=== PATIENT | female | born 2000 | race Caucasian/White ===

== ENCOUNTER 2021-03-16 08:08 | Emergency (ER) | payer OTHER, SELFPAY ==
[2021-03-16 08:18] VITALS: BP 126/89; PULSE 104; RESP 20; TEMP 36.5; O2SAT 100
--- NOTE | 2021-03-16 08:19 | ED.ANXIETY ---
HPI - Anxiety General Chief Complaint: Anxiety Stated Complaint: anxiety Time Seen by Provider: 03/16/21 08:19 Source: patient Mode of arrival: ambulatory Limitations: no limitations History of Present Illness HPI narrative: Kari Simons is a 20 yo female with a PMH of anxiety who comes to express care with c/o anxiety -tried using marijuana to calm the anxiety, without complete success. 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 EYES: Denies visual changes, redness, discharge. ENT: Denies rhinorrhea, congestion, sore throat, otalgia. CARDIOVASCULAR: Denies chest pain, palpitations, edema. RESPIRATORY: Denies dyspnea, wheezing, cough GASTROINTESTINAL: Denies abdominal pain, nausea, vomiting, diarrhea. GENITOURINARY: Denies dysuria, hematuria, abnormal discharge SKIN: Denies rash or itching. NEUROLOGIC: Denies numbness, or focal weakness. PSYCHIATRIC: Complaining of anxiety, no depression. PMFSH Past Medical History Medical History Anxiety Bipolar disorder Family History Family History Grandparent Diabetes mellitus Social History Social History (Updated 03/16/21 @ 08:33 by Ewa Woodson CNP) Smoking status: Current every day smoker Tobacco type: e-cigarettes/vaping Alcohol intake: never Alcohol use details: Does not like the way alcohol makes her feel Substance use: current Substance use type: marijuana Comments At time of signature, I agree with nursing past medical, surgical, social and family history. There is no relevant family history pertinent to the presenting complaint. Exam Narrative: Exam Narrative: GENERAL: This is a well-nourished, well-developed patient, in moderate distress. HEAD: normocephalic, atraumatic. EYES: Sclera clear/white. Vision is grossly intact. EARS: External ears normal, . Hearing grossly intact. NOSE: External nose normal without nasal discharge, nares without redness, no rhinorrhea. THROAT: Mucous membranes moist, NECK: Neck supple, CARDIOVASCULAR: Regular rate and rhythm without murmurs, gallops, or rubs. RESPIRATORY: Clear to auscultation. Breath sounds equal bilaterally. No wheezes, rales, or rhonchi. GASTROINTESTINAL: Abdomen soft, SKIN: warm, intact with no suspicious lesions or rash, good texture and turgor. NEURO: awake, alert, and oriented to person, place and time. There were no obvious focal neurologic abnormalities. Steady gait EXTREMITIES: Normal range of motion. BACK: Nontender without deformity Psych: anxious, moving around, hx bipolar, denies suicial ideation Course Course Emergency Course: Patient comes to [facility] with complaints of anxiety that started yesterday try to deal with with marijuana and has not improved; patient has a history of bipolar disorder and been off mood stabilizers Blood sugar checked and was 91 Started on Atarax 25 mg every 4-6 hours as needed Vital Signs Vital signs: Vital Signs Temperature 97.7 F 03/16/21 08:18 Pulse Rate 104 H 03/16/21 08:18 Respiratory Rate 20 03/16/21 08:18 Blood Pressure 126/89 03/16/21 08:18 Pulse Oximetry 100 03/16/21 08:18 Temperature 97.7 F 03/16/21 08:18 Pulse Rate 104 H 03/16/21 08:18 Respiratory Rate 20 03/16/21 08:18 Blood Pressure 126/89 03/16/21 08:18 Pulse Oximetry 100 03/16/21 08:18 MDM - Anxiety Differential Diagnosis Differential diagnosis: Likely hyperventilation, panic disorder, acute anxiety and other (Recurrent bipolar disorder versus hypomania) Lab Data Labs: Lab Results 03/16/21 Range/Units 08:26 POC [place]
[2021-03-16 08:29] LABS: Glucose Point of Care 91 (65-105)
== END 2021-03-16 08:46 | disposition home or self-care (01) ==
PROVIDERS: Emergency Provider Nurse Practitioner; PCP Family Medicine
DX: F41.9 Anxiety disorder, unspecified (principal); F17.210 Nicotine dependence, cigarettes, uncomplicated
CPT/HCPCS: 82948; 99213; G0463

== ENCOUNTER 2021-04-23 13:36 | Emergency (ER) | payer OTHER, SELFPAY ==
[2021-04-23 13:41] VITALS: BP 127/83; PULSE 94; RESP 16; TEMP 36.6; O2SAT 100
[2021-04-23 13:44] VITALS: BP 127/83; PULSE 94; RESP 16; TEMP 36.6; O2SAT 100
--- NOTE | 2021-04-23 13:45 | ED.NAVMDI ---
HPI - Nausea/Vomiting/Diarrhea General Chief complaint: Nausea/Vomiting/Diarrhea Stated complaint: VOMITING/DIARRHEA Time Seen by Provider: 04/23/21 13:44 Source: patient and RN notes reviewed Mode of arrival: ambulatory Limitations: no limitations History of Present Illness HPI Narrative: 20-year-old female presents with concern for nausea, vomiting, diarrhea. She reports she had multiple episodes of vomiting and diarrhea yesterday. She reports she has not vomited since last night and has been keeping fluids down. She reports she has had 2 episodes of diarrhea today, however called off work. She denies abdominal pain, fever, body aches, chills, sweats, rhinorrhea, nasal congestion, sore throat. Reports headache. She denies bloody diarrhea, hematuria, flank pain, dysuria. Reports taking Imodium this morning MD elicited complaint: diarrhea Related Data Home Medications Medication Instructions Recorded Confirmed bupropion HCl mg PO 04/23/21 propranolol 04/23/21 tramadol mg 04/23/21 Allergies Allergy/AdvReac Type Severity Reaction Status Date / Time raspberry Allergy Unknown Hives / Verified 06/27/18 01:12 Red Face Review of Systems Review of Systems: Narrative: CONSTITUTIONAL: Denies malaise, chills, sweats, or fever. EYES: Denies visual changes, redness, or discharge. ENT: Denies rhinorrhea, congestion, sinus pain, otalgia or sore throat. CARDIOVASCULAR: Denies chest pain, palpitations, or edema. RESPIRATORY: Denies cough or dyspnea. GASTROINTESTINAL: Denies abdominal pain, bloody, or mucous stools. Reports 2 episodes of diarrhea today, reports vomiting yesterday. GENITOURINARY: Denies dysuria or hematuria. MUSCULOSKELETAL: Denies flank pain, myalgia. NEUROLOGIC: Reports headache. All systems reviewed & are unremarkable except as noted in HPI and below PMFSH Past Medical History Medical History Anxiety Bipolar disorder Family History Family History Grandparent Diabetes mellitus Social History Social History (Updated 03/16/21 @ 08:33 by Ewa Woodson CNP) Smoking status: Current every day smoker Tobacco type: e-cigarettes/vaping Alcohol intake: never Substance use: current Substance use type: marijuana Comments At time of signature, agree with nursing past medical, surgical, social and family history. There is no relevant family history pertinent to the presenting complaint Exam Narrative: Exam Narrative: GENERAL: Well-appearing, well-nourished, and in no acute distress. HEAD: Normocephalic. EYES: PERRLA, conjunctivae clear. NECK: Supple. No lymphadenopathy CHEST: Clear to auscultation. No respiratory distress. HEART: Regular rate and rhythm. ABDOMEN: Soft, nontender upon palpation, nondistended, normal active bowel sounds, no palpable or pulsatile masses, no guarding. No CVA tenderness SKIN: Warm, dry, no rash. NEURO: Alert and oriented x3. PSYCH: Normal mood and affect Course Course Emergency Course: Patient is aware of diagnosis, understands and agrees to treatment plan. Anticipatory guidance given. Patient agrees to follow-up as directed and is aware of reasons to seek care at the emergency department. Portions of this record may have been created with voice recognition software Vital Signs Vital signs: Vital Signs Temperature 97.9 F 04/23/21 13:41 Pulse Rate 94 04/23/21 13:41 Respiratory Rate 16 04/23/21 13:41 Blood Pressure 127/83 04/23/21 13:41 Pulse Oximetry 100 04/23/21 13:41 Temperature 97.9 F 04/23/21 13:44 Pulse Rate 94 04/23/21 13:44 Respiratory Rate 16 04/23/21 13:44 Blood Pressure 127/83 04/23/21 13:44 Pulse Oximetry 100 04/23/21 13:44 Reviewed. MDM - Nausea/Vomiting/Diarrhea MDM Narrative Medical decision making narrative: No evidence of pancreatitis, AAA, cholecystitis, choledocholithiasis, cholangi
== END 2021-04-23 14:00 | disposition home or self-care (01) ==
PROVIDERS: Emergency Provider Nurse Practitioner; PCP Family Medicine
DX: R19.7 Diarrhea, unspecified (principal); F41.9 Anxiety disorder, unspecified; F31.9 Bipolar disorder, unspecified; F17.290 Nicotine dependence, other tobacco product, uncomplicated
CPT/HCPCS: 99211; G0463

== ENCOUNTER 2021-05-28 12:07 | Emergency (ER) | payer OTHER, SELFPAY ==
--- NOTE | ~2021-05-28 | XR_ITS ---
XR chest 2V DATE: 05/28/2021 12:47 INDICATION: Cough TECHNIQUE: PA and lateral views COMPARISON: 07/07/2018 PA and lateral chest FINDINGS: Normal heart size. No hilar or mediastinal enlargement. No pulmonary infiltrate or consolid ation, pleural effusion or pulmonary vascular congestion or pneumothorax. IMPRESSION: No active cardiopulmonary disease Reviewed, dictated and finalized at location A.
[2021-05-28 12:28] VITALS: BP 126/81; PULSE 85; RESP 18; TEMP 36.3; O2SAT 99
--- NOTE | 2021-05-28 13:35 | PC.NURSE ---
1334 pt at intake desk stating she is feeling better and she is just going to leave. Pt ambulated out of Ed to meet mother with no distress noted.
== END 2021-05-28 13:34 | disposition left against medical advice (07) ==
LOC: ANHED 13:49
PROVIDERS: Emergency Provider Emergency Medicine
DX: R05 Cough (principal)
CPT/HCPCS: 71046; 99199

== ENCOUNTER 2021-08-30 14:38 | Emergency (ER) | payer OTHER, SELFPAY ==
--- NOTE | ~2021-08-30 | XR_ITS ---
XR chest 2V DATE: 08/30/2021 14:56 INDICATION: Shortness of breath, inspiratory wheezes. Covid infection. TECHNIQUE: 2 views COMPARISON: 2 view chest FINDINGS: Normal heart size. No hilar or mediastinal enlargement. No pulmonary infiltrate or consolid ation, pleural effusion or pulmonary vascular congestion or pneumothorax. Included skeletal structure s are unremarkable. IMPRESSION: No active cardiopulmonary disease Reviewed, dictated and finalized at location A.
--- NOTE | 2021-08-30 14:41 | ED.URI ---
HPI - URI/Sore Throat General Chief Complaint: Shortness of Breath/Dyspnea Stated Complaint: Shortness of Breath Time Seen by Provider: 08/30/21 14:41 Source: patient and RN notes reviewed History of Present Illness HPI Narrative: Patient is a 20-year-old female who presents the urgent care with complaints of wheezing, chest heaviness/tightness, and shortness of breath. Patient has not taken anything [id number] for her symptoms. Patient has not had a fever for the last week or so and was taking Tylenol. No other acute complaints. No acute distress noted. Patient aware of the plan of care. Some parts of this dictation were generated by voice recognition software and may contain typographical and/or grammatical inaccuracies. Related Data Home Medications Medication Instructions Recorded Confirmed bupropion HCl 150 mg PO DAILY 08/30/21 08/30/21 hydroxyzine pamoate 25 mg PO Q12-24H PRN 08/30/21 08/30/21 lamotrigine 100 mg PO DAILY 08/30/21 08/30/21 Allergies Allergy/AdvReac Type Severity Reaction Status Date / Time raspberry Allergy Unknown Hives / Verified 08/30/21 14:53 Red Face chicken pox vaccine Allergy Unknown Uncoded 08/30/21 15:03 Review of Systems Review of Systems: CONSTITUTIONAL: Denies fever, chills, or sweats. EYES: Denies visual changes, redness, or discharge. ENT: Denies rhinorrhea, congestion, sore throat, or otalgia. CARDIOVASCULAR: Denies chest pain, palpitations, or edema. RESPIRATORY: Reports of difficulty with deep breathing, wheezing and dyspnea GASTROINTESTINAL: Denies abdominal pain, nausea, vomiting, or diarrhea. GENITOURINARY: Denies dysuria or hematuria. SKIN: Denies rash or itching. MUSCULOSKELETAL: Denies back pain, joint pain, or myalgia. NEUROLOGIC: Denies headache, numbness, or weakness. All other systems reviewed are negative, except as documented in HPI. [facility] Past Medical History Medical History Anxiety Bipolar disorder Family History Family History Grandparent Diabetes mellitus Social History Social History (Updated 03/16/21 @ 08:33 by Ewa Woodson CNP) Smoking status: Current every day smoker Tobacco type: e-cigarettes/vaping Alcohol intake: never Alcohol use details: Does not like the way alcohol makes her feel Substance use: current Substance use type: marijuana Comments At the time of my signature, I reviewed and agree with the nursing past medical, surgical, social, and family history. There is no relevant family history pertinent to the patient complaint. Exam Narrative: GENERAL: This is a well-nourished, well-developed patient, in no apparent distress. HEAD: normocephalic, atraumatic. EYES: PERRL. Sclera clear/white. Vision is grossly intact. EARS: External ears normal, auditory canals clear and without drainage, TMs normal without perforation. Hearing grossly intact. NOSE: External nose normal with no obvious nasal discharge, nares without redness, no rhinorrhea. THROAT: Mucous membranes moist, posterior pharynx clear. NECK: Neck supple CARDIOVASCULAR: Regular rate and rhythm without murmurs, gallops, or rubs. RESPIRATORY: Inspiratory wheezes throughout, slightly diminished SKIN: warm, intact with no suspicious lesions or rash, good texture and turgor. NEURO: awake, alert, and oriented to person, place and time. There were no obvious focal neurologic abnormalities. EXTREMITIES: No clubbing, cyanosis, or edema. Course Vital Signs Vital signs: Vital Signs Temperature 98.6 F 08/30/21 14:46 Pulse Rate 106 H 08/30/21 14:46 Respiratory Rate 16 08/30/21 14:46 Blood Pressure 139/71 08/30/21 14:46 Pulse Oximetry 99 08/30/21 14:46 Temperature 98.6 F 08/30/21 14:46 Pulse Rate 106 H 08/30/21 14:46 Respiratory Rate 16 08/30/21 14:46 Blood Pressure 139/71 08/30/21 14:46 Pulse Oximetry 99 08/30/21 1
[2021-08-30 14:46] VITALS: BP 139/71; PULSE 106; RESP 16; TEMP 37; O2SAT 99
== END 2021-08-30 15:05 | disposition home or self-care (01) ==
PROVIDERS: Emergency Provider Nurse Practitioner Family; PCP Family Medicine
DX: J98.8 Other specified respiratory disorders (principal); U09.9 Post COVID-19 condition, unspecified; F17.200 Nicotine dependence, unspecified, uncomplicated; F31.9 Bipolar disorder, unspecified; F41.9 Anxiety disorder, unspecified
CPT/HCPCS: 71046; 99213; G0463

== ENCOUNTER 2021-10-18 10:32 | Emergency (ER) | payer OTHER, SELFPAY ==
[2021-10-18 10:40] VITALS: BP 135/73; PULSE 100; RESP 16; TEMP 36.6; O2SAT 99
[2021-10-18 10:50] VITALS: BP 135/73; PULSE 100; RESP 16; TEMP 36.6; O2SAT 99
--- NOTE | 2021-10-18 11:04 | ED.URI ---
HPI - URI/Sore Throat General Chief Complaint: Upper Respiratory Infection Stated Complaint: Cough/Headache Time Seen by Provider: 10/18/21 11:04 Source: patient and RN notes reviewed Mode of arrival: ambulatory Limitations: no limitations History of Present Illness HPI Narrative: 21-year-old female presents with concern for 2-day history of nasal congestion, rhinorrhea, cough. Reports throat burning with cough. Reports she ended quarantine for Covid on September 01. Reports she is concerned about going to work. Food. She denies body aches, fever, chills, shortness of breath, reports sweats. MD elicited complaint: cough Related Data Home Medications Medication Instructions Recorded Confirmed bupropion HCl 150 mg PO DAILY 08/30/21 10/18/21 lamotrigine 100 mg PO DAILY 08/30/21 10/18/21 propranolol 10 mg PO TID 10/18/21 10/18/21 Allergies Allergy/AdvReac Type Severity Reaction Status Date / Time raspberry Allergy Unknown Hives / Verified 08/30/21 14:53 Red Face chicken pox vaccine Allergy Unknown Uncoded 08/30/21 15:03 Review of Systems Review of Systems: CONSTITUTIONAL: Denies malaise, chills, or fever. Reports sweats EYES: Denies visual changes, redness, or discharge. ENT: Reports rhinorrhea, congestion. Denies sinus pain, otalgia. Reports scratchy sore throat. CARDIOVASCULAR: Denies chest pain, palpitations, or edema. RESPIRATORY: Reports cough. Denies dyspnea. GASTROINTESTINAL: Denies abdominal pain, nausea, vomiting, diarrhea SKIN: Denies rash or itching. MUSCULOSKELETAL: Denies myalgia. NEUROLOGIC: Denies headache. All systems reviewed & are unremarkable except as noted in HPI and below PMFSH Past Medical History Medical History Anxiety Bipolar disorder Family History Family History Grandparent Diabetes mellitus Social History Social History (Updated 03/16/21 @ 08:33 by Ewa Woodson CNP) Smoking status: Current every day smoker Tobacco type: e-cigarettes/vaping Alcohol intake: never Alcohol use details: Does not like the way alcohol makes her feel Substance use: current Substance use type: marijuana Comments At time of signature, agree with nursing past medical, surgical, social and family history. There is no relevant family history pertinent to the presenting complaint Exam Narrative: GENERAL: Well-appearing, well-nourished, and in no acute distress. HEAD: Normocephalic EYES: PERRLA, conjunctivae clear ENT: Nares clear, clear discharge. Mucous membranes moist. TM pearly red with dull light reflex bilaterally; no tragal tenderness. Oropharynx not erythematous without lesions. Tonsils not enlarged and without exudate, no drooling, no hoarseness, no trismus, uvula midline. NECK: Supple. No lymphadenopathy CHEST: Clear to auscultation, breath sounds equal. No wheezing, rhonchi, rales, or stridor. No respiratory distress, speaks in full sentences. HEART: Regular rate and rhythm. No murmur heard. SKIN: Warm, dry, no rash. NEURO: Alert and oriented x3. PSYCH: Normal mood and affect Course Course Emergency Course: Patient is aware of diagnosis, understands and agrees to treatment plan. Anticipatory guidance given. Patient agrees to follow-up as directed and is aware of reasons to seek care at the emergency department. Portions of this record may have been created with voice recognition software Vital Signs Vital signs: Vital Signs Temperature 98 F 10/18/21 10:40 Pulse Rate 100 10/18/21 10:40 Respiratory Rate 16 10/18/21 10:40 Blood Pressure 135/73 10/18/21 10:40 Pulse Oximetry 99 10/18/21 10:40 Temperature 98 F 10/18/21 10:50 Pulse Rate 100 10/18/21 10:50 Respiratory Rate 16 10/18/21 10:50 Blood Pressure 135/73 10/18/21 10:50 Pulse Oximetry 99 10/18/21 10:50 Reviewed. MDM - URI/Sore Throat MDM Narrative Medical deci
== END 2021-10-18 11:18 | disposition home or self-care (01) ==
PROVIDERS: Emergency Provider Nurse Practitioner; PCP Family Medicine
DX: J06.9 Acute upper respiratory infection, unspecified (principal); F17.290 Nicotine dependence, other tobacco product, uncomplicated; F31.9 Bipolar disorder, unspecified; F41.9 Anxiety disorder, unspecified
CPT/HCPCS: 99213; G0463

== ENCOUNTER 2022-09-20 11:49 | Emergency (ER) | payer OTHER, SELFPAY ==
[2022-09-20 12:03] VITALS: BP 108/77; PULSE 73; RESP 16; TEMP 36.6; O2SAT 100
--- NOTE | 2022-09-20 14:32 | ED.NAVMDI ---
HPI - Nausea/Vomiting/Diarrhea General Chief complaint: Nausea/Vomiting/Diarrhea Stated complaint: Vomiting/Diarrhea Time Seen by Provider: 09/20/22 14:33 Source: patient, RN notes reviewed and old records reviewed Mode of arrival: ambulatory Limitations: no limitations History of Present Illness HPI Narrative: 21-year-old female who presents to [facility] with 2-3 days duration of nausea vomiting diarrhea. Patient states she has had no fever but did have to call off work for 2 days. Patient denies any acute abdominal pain does voice some cramping but is unsure if it is related to the diarrhea or female issues.Reports she did have diarrhea stool this morning, denies any noted blood in stool. MD elicited complaint: nausea, vomiting and diarrhea Pertinent past history: other (IBS) Onset (ago): day(s) (3) Pain scale (0-10): 2 Quality: cramping Treatment prior to arrival: none Related Data Home Medications Medication Instructions Recorded Confirmed bupropion HCl (smoking deter) 150 150 mg PO DAILY 09/20/22 09/20/22 mg tablet,12 hr sustained-release(smoking deterrent) lamotrigine 100 mg tablet 150 mg PO DAILY 09/20/22 09/20/22 norethindrone 1 mg-ethinyl 1 tablet PO DAILY 09/20/22 09/20/22 estradiol 20 mcg (24)-iron 75 mg (4) tablet () Allergies Allergy/AdvReac Type Severity Reaction Status Date / Time raspberry Allergy Unknown Hives / Verified 09/20/22 12:34 Red Face chicken pox vaccine Allergy Unknown Uncoded 09/20/22 12:34 Review of Systems Review of Systems: CONSTITUTIONAL: Denies fever, chills, or sweats. ENT: Denies rhinorrhea, congestion, sore throat, or otalgia. CARDIOVASCULAR: Denies chest pain, palpitations, or edema. RESPIRATORY: Denies cough or dyspnea. GASTROINTESTINAL: Reports abdominal cramps, nausea, vomiting, diarrhea. GENITOURINARY: Denies dysuria or hematuria. SKIN: Denies rash or itching. MUSCULOSKELETAL: Denies back pain, joint pain, or myalgia. NEUROLOGIC: Denies headache, numbness, or weakness. All systems reviewed & are unremarkable except as noted in HPI and below PMFSH Past Medical History Medical History (Updated 09/26/22 @ 14:20 by Janey Almanza NP) Anxiety Bipolar disorder COVID-19 08/2021 Exercise-induced asthma IBS (irritable bowel syndrome) Family History Family History Grandparent Diabetes mellitus Social History Social History (Updated 09/26/22 @ 14:17 by Janey Almanza NP) Smoking status: Current every day smoker Tobacco type: e-cigarettes/vaping Alcohol intake: never Alcohol use details: Does not like the way alcohol makes her feel Substance use: current Substance use type: marijuana Gender identity (if verbalized by the patient): Female Comments At time of signature, agree with nursing past medical, surgical, social and family history. There is no relevant family history pertinent to the presenting complaint Exam Narrative: GENERAL: Well-appearing, well-nourished, and in no acute distress. HEAD: Normocephalic, atraumatic. EYES: PERRLA, conjunctivae clear, and EOMI. ENT: Nares clear. Mucous membranes moist. Oropharynx without edema, erythema, or lesions. Tonsils not enlarged and without exudate. NECK: Supple. No lymphadenopathy CHEST: Speaks in full sentences. No respiratory distress.SAO2 100% on room air HEART: Regular rate and rhythm. ABDOMEN: Soft, flat, nondistended. No guarding, rebound tenderness, or rigid. No pulsatilla masses. Bowel sounds present in all four quadrants. No organomegaly. Negative Stewart?s sign. No periumbilical tenderness.No McBurney point tenderness, No Supra public tenderness or distension. Good femoral pulses bilaterally. No hernia noted. No scars or surface trauma. SKIN: Warm, dry, no rash. NEURO:? Alert and oriented x3. PSYCH: Normal mood and affect Course Course Emergency Course: Patient is aware of
== END 2022-09-20 15:05 | disposition home or self-care (01) ==
PROVIDERS: Emergency Provider Registered Nurse; PCP Family Medicine
DX: K52.9 Noninfective gastroenteritis and colitis, unspecified (principal); F17.290 Nicotine dependence, other tobacco product, uncomplicated; F41.9 Anxiety disorder, unspecified; F31.9 Bipolar disorder, unspecified
CPT/HCPCS: 87804; 99213; G0463

== ENCOUNTER 2022-10-17 15:51 | Emergency (ER) | payer OTHER, SELFPAY ==
--- NOTE | ~2022-10-17 | XR_ITS ---
EXAMINATION: XR chest 2V DATE: 10/17/2022 16:10 INDICATION: Shortness of breath and cough TECHNIQUE: PA and lateral views of the chest were obtained. COMPARISON: Chest radiograph dated 08/30/2021 FINDINGS: No focal airspace opacities, pulmonary edema, pleural effusion or pneumothorax. Skinfold projects jose ng the lateral left midlung zone. The cardiomediastinal silhouette is normal. Mild to moderate thorac ic spondylosis with chronic minimal anterior wedging of a. Midthoracic vertebral bodies. IMPRESSION: 1. No acute cardiopulmonary disease. Reviewed, dictated and finalized at location A. RAN APPEALS REVIEWER
[2022-10-17 15:56] VITALS: BP 116/69; PULSE 112; RESP 14; TEMP 36.8; O2SAT 100
--- NOTE | 2022-10-17 16:25 | ED.URI ---
HPI - URI/Sore Throat General Chief Complaint: Upper Respiratory Infection Stated Complaint: Cough/Shortness of Breath Time Seen by Provider: 10/17/22 16:10 Source: patient Mode of arrival: ambulatory Limitations: no limitations History of Present Illness HPI Narrative: Ms. Simons is a 22-year-old female patient presenting to clinic today with complaints of cough and shortness of breath x4 days. She denies any fever or chills. Does have a history of anxiety. States that she has tried her mother's nebulizer at home and that has improved her symptoms 1 time. MD elicited complaint: sore throat and nasal congestion Related Data Home Medications Medication Instructions Recorded Confirmed aripiprazole 5 mg tablet 5 mg PO DAILY 10/17/22 10/17/22 bupropion HCl 150 mg 24 hr tablet, 150 mg PO DAILY 10/17/22 10/17/22 extended release lamotrigine 100 mg tablet 150 mg PO DAILY 10/17/22 10/17/22 Allergies Allergy/AdvReac Type Severity Reaction Status Date / Time raspberry Allergy Unknown Hives / Verified 10/17/22 16:49 Red Face chicken pox vaccine Allergy Unknown Uncoded 10/17/22 16:49 Review of Systems Review of Systems: Pertinent positives per HPI. Patient denies any fever, chills, rash, headache, visual changes, dizziness, chest pain, palpitations, nausea, vomiting, diarrhea, constipation, abdominal pain, or any urinary issues. [facility] Past Medical History Medical History Anxiety Bipolar disorder COVID-19 08/2021 Exercise-induced asthma IBS (irritable bowel syndrome) Family History Family History Grandparent Diabetes mellitus Social History Social History Smoking status: Current every day smoker Tobacco type: e-cigarettes/vaping Alcohol intake: never Alcohol use details: Does not like the way alcohol makes her feel Substance use: current Substance use type: marijuana Gender identity (if verbalized by the patient): Female Comments At the time of my signature, I reviewed and agree with the nursing past medical, surgical, social, and family history. There is no relevant family history pertinent to the patient complaint. Exam Narrative: General: Well-developed, well nourished, in no apparent distress Head: Normocephalic, atraumatic Eyes: Pupils equally round and reactive to light bilaterally, EOM intact, sclera and conjunctive clear, no discharge, lids normal Ears: TMs intact and clear, ear canals clear, no drainage, grossly hearing normal. Nose: Nares patent, no discharge, no inflammation, no sinus tenderness. Mouth: Oral pharynx without lesions or masses, good dentition, MMM. Neck: Supple, trachea midline, no enlargement of anterior or posterior cervical nodes, no thyroid masses or goiter palpable. Cardio: Regular rate and rhythm, s1 and s2 normal, no murmur appreciated. Resp: inspiratory and expiratory wheezing, no rhonchi, rales, or rubs Course Course Emergency Course: Portions of this record may have been created with voice recognition software. Level of Care: Express Care Visit Vital Signs Vital signs: Vital Signs Temperature 36.8 C 10/17/22 15:56 Pulse Rate 112 H 10/17/22 15:56 Respiratory Rate 14 10/17/22 15:56 Blood Pressure 116/69 10/17/22 15:56 Pulse Oximetry 100 10/17/22 15:56 Oxygen Delivery Room Air 10/17/22 15:56 Temperature 36.8 C 10/17/22 15:56 Pulse Rate 112 H 10/17/22 15:56 Respiratory Rate 14 10/17/22 15:56 Blood Pressure 116/69 10/17/22 15:56 Pulse Oximetry 100 10/17/22 15:56 Oxygen Delivery Room Air 10/17/22 15:56 Vital signs reviewed MDM - URI/Sore Throat MDM Narrative Medical decision making narrative: At the time of visit patient is resting comfortably on the exam table. She has inspiratory and expiratory wheezing. I s
[2022-10-17] MEDS: ALBUTEROL SULFATE NEB 2.5 MG/3 ML INH INHALATION (17:00)
[2022-10-17] MEDS: IPRATROPIUM BR 0.02% INH SOLN 0.5 MG/2.5 ML VIAL INHALATION (17:00)
[2022-10-17 17:30] VITALS: PULSE 88; RESP 18; O2SAT 99
== END 2022-10-17 17:30 | disposition home or self-care (01) ==
PROVIDERS: Emergency Provider Nurse Practitioner Family
DX: J40 Bronchitis, not specified as acute or chronic (principal); F41.9 Anxiety disorder, unspecified
CPT/HCPCS: 71046; 99213; G0463

== ENCOUNTER 2023-02-08 13:24 | Emergency (ER) | payer OTHER, SELFPAY ==
[2023-02-08 13:30] VITALS: BP 113/55; PULSE 100; RESP 20; TEMP 37.5; O2SAT 99
--- NOTE | 2023-02-08 13:51 | ED.ABDPAIN ---
HPI - Abdominal Pain General Chief Complaint: Abdominal Pain Stated Complaint: Diarrhea/Abdominal Pain Time Seen by Provider: 02/08/23 13:51 Source: patient, RN notes reviewed and old records reviewed Mode of arrival: ambulatory Limitations: no limitations History of Present Illness HPI narrative: 22 year old who presents to [facility] with complaints with diarrhea, crampy abdominal discomfort that radiates to her back, nausea with no vomiting since yesterday. Patient reports that Thursday night she ate subway and wonders if she got food poisoning. Patient reports that she left work early yesterday due to diarrhea and she has had to call off today because of continued diarrhea and fever up to 101.9F. Patient reports that she had headache today and body aches, nauseated also, denies any burning or pain with urination MD elicited complaint: abdominal pain and other (diarrhea, nausea) Onset (ago): day(s) (2 of symptoms) Pain Consistency: colicky (crampy) Associated symptoms: nausea, diarrhea and fever Treatments prior to arrival: other (none) Related Data Allergies Allergy/AdvReac Type Severity Reaction Status Date / Time raspberry Allergy Unknown Hives / Verified 02/08/23 13:32 Red Face chicken pox vaccine Allergy Unknown Unknown Uncoded 02/08/23 13:32 Review of Systems Review of Systems: CONSTITUTIONAL: reports fever, chills, or sweats. ENT: Denies rhinorrhea, congestion, sore throat, or otalgia. CARDIOVASCULAR: Denies chest pain, palpitations, or edema. RESPIRATORY: Denies cough or dyspnea. GASTROINTESTINAL: Reports crampy abdominal pain, nausea, diarrhea. GENITOURINARY: Denies dysuria or hematuria. SKIN: Denies rash or itching. MUSCULOSKELETAL: reports some referred back pain when she has abdominal cramping,no joint pain, states body aches NEUROLOGIC: Reports headache,no numbness, or weakness. All systems reviewed & are unremarkable except as noted in HPI and below PMFSH Past Medical History Medical History Anxiety Bipolar disorder COVID-19 08/2021 Exercise-induced asthma IBS (irritable bowel syndrome) Family History Family History Grandparent Diabetes mellitus Social History Social History Smoking status: Current every day smoker Tobacco type: e-cigarettes/vaping Alcohol intake: never Alcohol use details: Does not like the way alcohol makes her feel Substance use: current Substance use type: marijuana Gender identity (if verbalized by the patient): Female Comments At time of signature, agree with nursing past medical, surgical, social and family history. There is no relevant family history pertinent to the presenting complaint Exam Narrative: GENERAL: Well-appearing, well-nourished, and in no acute distress. HEAD: Normocephalic, atraumatic. EYES: PERRLA, conjunctivae clear, and EOMI. ENT: Nares clear. Mucous membranes moist. Oropharynx without edema, erythema, or lesions. Tonsils not enlarged and without exudate. NECK: Supple. No lymphadenopathy CHEST: Speaks in full sentences. No respiratory distress. HEART: Regular rate and rhythm. ABDOMEN: Soft, flat, nondistended. No guarding, rebound tenderness, or rigid. No pulsatilla masses. Bowel sounds present in all four quadrants. No organomegaly. Negative Stewart?s sign. No periumbilical tenderness. Negative for McBurney point tenderness, No Supra public tenderness or distension. Good femoral pulses bilaterally. No hernia noted. No scars or surface trauma. intermittent crampy type of abdominal discomfort which radiates to back at intervals, SKIN: Warm, dry, no rash. NEURO:? Alert and oriented x3. PSYCH: Normal mood and affect Course Course Emergency Course: Patient is aware of diagnosis, understands and agrees to treatment plan.? Anticipatory guidance given.? Patient
== END 2023-02-08 14:40 | disposition home or self-care (01) ==
PROVIDERS: Emergency Provider Registered Nurse; PCP Family Medicine
DX: K21.9 Gastro-esophageal reflux disease without esophagitis (principal); Z20.822 Contact with and (suspected) exposure to COVID-19; F17.290 Nicotine dependence, other tobacco product, uncomplicated; J45.990 Exercise induced bronchospasm; Z86.16 Personal history of COVID-19
CPT/HCPCS: 81003; 87086; 87088; 87426; 99213; C9803; G0463

== ENCOUNTER 2023-07-23 13:02 | Outpatient (CLI) | payer OTHER, SELFPAY | END 2023-07-23 13:03 | disposition home or self-care (01) | LOC: ANHLAB 13:04 | PROVIDERS: PCP Family Medicine; Visit Provider Obstetrics & Gynecology | DX: O20.0 Threatened abortion (principal) | CPT/HCPCS: 36415; 84702 ==

== ENCOUNTER 2023-07-25 07:23 | Outpatient (CLI) | payer OTHER, SELFPAY | END 2023-07-25 07:24 | disposition home or self-care (01) | LOC: ANHLAB 07:24 | PROVIDERS: PCP Family Medicine; Visit Provider Obstetrics & Gynecology | DX: O20.0 Threatened abortion (principal) | CPT/HCPCS: 36415; 84702; 86850; 86880; 86900; 86901; 86902; 86905 ==

== ENCOUNTER 2023-08-11 04:35 | Day surgery (SDC) | payer OTHER, SELFPAY ==
[2023-08-10 14:33] VITALS: BMI 31.1
--- NOTE | 2023-08-10 14:38 | PC.NURSE ---
Report to the Outpatient Waiting Room, entrance under the green pavilion located off [facility], at time 1000 on date 08/11/23. Planned Procedure Time: 1200. Time changes happen often and if your time is changed the preop area will call you the afternoon before. - You and your visitor will be asked to self-screen and do not enter if you have any COVID symptoms. - A mask is optional within the hospital at this time. Patients may have clear liquids (water, carbonated beverages, clear teas, apple juice) until 3 hours prior to surgery with a maximum of 20 ounces. - No food from midnight until time of surgery Take the following medications with a SIP of water the morning of surgery: N/A DO NOT STOP ANY OF YOUR OTHER PRESCRIPTION MEDICATIONS PRIOR TO SURGERY ?EXCEPT THE FOLLOWING Medications to discontinue per physician: N/A Date to take last dose: N/A Please no make-up, nail vietnamese, hairspray, perfume, deodorant, or body powder the day of surgery. No jewelry (including any body piercings) or valuables the day of surgery, leave them at home. Please take a shower or bath the night before, or the morning of, surgery with an antibacterial soap. Wear comfortable, loose fitting clothing. - Jewelry must be removed prior to entering the operating room. Rings and piercings that are not removed may be cut off. - The hospital will not accept responsibility for valuables. - Please leave all valuables, including medications, at home the day of surgery. If you are going home after surgery, a licensed steam train driver must drive you home. - NO public transportation without another adult if you receive anesthesia. - We recommend that an adult stay with you for 24 hours following discharge. - We also recommend that you do not drive, make important decision, drink alcoholic beverages, or take any drugs that were not prescribed by your health care provider for at least 24 hours after your discharge time. Follow any additional instructions given to you from your surgeon. If you or anyone in your household have experienced Covid symptoms in the past week, please notify your surgeon or the nurse liaison at the phone number below for possible testing. Telephone instructions given to PT - JAQUI GURROLA and asked if any additional questions and then verbalized understanding. Patient advised to call surgeon office or pre surgery nurse liaison [phone] if any additional questions.
[2023-08-11] MEDS: DOXYCYCLINE 100 MG/NS 100 ML 100 MG/100 ML BAG IVPB (10:51)
[2023-08-11] MEDS: ACETAMINOPHEN 500 MG TABLET 1000 MG PO (10:51)
[2023-08-11] MEDS: LACTATED RINGERS 1,000 ML 30 ML IV CONT (10:54)
[2023-08-11 11:11] VITALS: BMI 30.2
[2023-08-11 11:13] VITALS: BP 124/64; PULSE 80; RESP 16; TEMP 36.2; O2SAT 99
--- NOTE | 2023-08-11 11:19 | P.PNAN_ITS ---
Anes - Initial Pre Proc Eval Procedure: Operation Date: 08/11/23 12:00 Proposed Procedures p Suction Dilation and Curettage - Melissa Coyne MD Date/Time: 08/11/23 11:19 Surgeon: Melissa Coyne MD Pre Op Diagnosis: Miss ISRAEL Patient Data Age: 22 Gender: F Height: 1.57 m Weight: 75.1 kg Last Vital Signs Temp 36.2 C L 08/11/23 11:13 Pulse 80 08/11/23 11:13 Resp 16 08/11/23 11:13 BP 124/64 08/11/23 11:13 Pulse Ox 99 08/11/23 11:13 O2 Del Method Room Air 08/11/23 11:13 Allergies Allergy/AdvReac Type Severity Reaction Status Date / Time raspberry Allergy Unknown Hives / Verified 08/11/23 11:05 Red Face chicken pox vaccine Allergy Unknown Unknown Uncoded 08/11/23 11:05 Home Medications Medication Instructions Recorded Confirmed Type No Home Medications 08/10/23 08/11/23 History Patient hx anesthesia problems: none Family hx anesthesia problems: none Results Review: All pre-operative results and documents have been reviewed as part of the pre- operative evaluation. [facility] Past Medical History Medical History Anxiety Bipolar disorder COVID-08/2021 Exercise-induced asthma IBS (irritable bowel syndrome) Surgical History Surgical History (Updated 08/11/23 @ 11:19 by Thierno Lerma MD) H/O colonoscopy Family History Family History Grandparent Diabetes mellitus Social History Social History Smoking status: Current every day smoker Tobacco type: e-cigarettes/vaping Alcohol intake: former Alcohol use details: VERY RARE WHEN NOT Substance use: current Substance use type: marijuana Living arrangements: with family Additional living arrangements comments: [facility] Gender identity (if verbalized by the patient): Female Spiritual care concerns: No Anes - Eval Final PreProcedure Day of Procedure 08/11/23 11:19 Patient weight: obese Heart: regular rate and rhythm Lungs: clear to auscultation Airway: Mallampati scale class II Neurological: alert and oriented Last oral intake: >/= 8 hours ASA classification: II Emergent: no Anesthetic plan: proceed Anesthesia type and monitoring: general GIVS and standard monitoring Results Review: All pre-operative results and documents have been reviewed as part of the pre- operative evaluation. Informed Consent: The patient's anesthetic plan and its attendant risks and benefits were discussed with the patient/family/POA. Questions were solicited and answers provided to the satisfaction of the patient/family/POA.
--- NOTE | 2023-08-11 12:08 | PM.IMHP ---
H&P: HPI History of Present Illness Date/Time: 08/11/23 12:08 Chief Complaint: missed ab Narrative: Kari is a 22yo G1 for suction D and C for missed ab. Had poor rising hcgs and on US on 07/28 showed blighted ovum. No YS or FP and no progression from the prior week US. She was going to try cytotec but decided for D and C instead. Rh pos. Review of Systems Review of Systems: All systems reviewed & are unremarkable except as noted in HPI and below PMFSH Past Medical History Medical History (Updated 08/11/23 @ 12:11 by Melissa Coyne MD) Anxiety Bipolar disorder COVID-19 08/2021 Exercise-induced asthma IBS (irritable bowel syndrome) Surgical History Surgical History (Updated 08/11/23 @ 11:19 by Thierno Lerma MD) H/O colonoscopy Family History Family History Grandparent Diabetes mellitus Social History Social History Smoking status: Current every day smoker Tobacco type: e-cigarettes/vaping Alcohol intake: former Alcohol use details: VERY RARE WHEN NOT Substance use: current Substance use type: marijuana Living arrangements: with family Additional living arrangements comments: [facility] Gender identity (if verbalized by the patient): Female Spiritual care concerns: No Meds Home Medications and Allergies Home Medications Medication Instructions Recorded Confirmed Type No Home Medications 08/10/23 08/11/23 History Allergies Allergy/AdvReac Type Severity Reaction Status Date / Time raspberry Allergy Unknown Hives / Verified 08/11/23 11:05 Red Face chicken pox vaccine Allergy Unknown Unknown Uncoded 08/11/23 11:05 Vital Signs Vital Signs - 24 hr 08/11/23 11:13 Temperature 97.2 F L Pulse Rate 80 Respiratory Rate 16 Blood Pressure 124/64 Pulse Oximetry 99 Oxygen Delivery Room Air Exam Const: General: no acute distress Resp: Effort & Inspection: normal respiratory effort Auscultation: clear to auscultation bilaterally Cardio: Rate: regular rate Rhythm: regular rhythm GI: GI Palp: Yes Soft to palpation Extrem: General: normal to inspection Assessment and Plan Assessment and plan (1) Missed : Code(s): O02.1 - Missed Status: Acute (2) Blighted ovum: Code(s): O02.0 - Blighted ovum and nonhydatidiform mole Status: Acute Plan Rh pos will proceed with suction D and C. consented, discussed RBA. dyer.
--- NOTE | 2023-08-11 12:12 | WPDHPUPDATE1 ---
History and Physical Update Update Date/Time: 08/11/23 12:12 History and Physical has been reviewed, including an updated exam of the patient. There are NO changes in the patient's condition. Risks, benefits, and alternatives have been discussed and questions answered. Patient agrees to proceed with procedure.
[2023-08-11] MEDS: BUPIVACAINE/EPINEPHRINE 0.5% 30 ML VIAL 10 ML INFILTRATE (12:27)
[2023-08-11] MEDS: KETOROLAC 15 MG/ML VIAL (*BKC) IV PUSH (12:37)
--- NOTE | 2023-08-11 12:41 | W.PM.PROC2 ---
Procedure Note - Detailed Date of Procedure 08/11/23 Pre-op Diagnosis missed ab/blighted ovum Post-op Diagnosis Same Procedure Performed suction D and C Surgeon Melissa Coyne MD Anesthesia MAC and Local Indications blighted ovum Findings uterus anteverted and sounded to 9cm Description of Procedure The patient was taken to the OR and placed in supine position in dorsal lithotomy. She received MAC anesthesia and doxycycline. She was prepped and draped in normal fashion. A speculum was placed and the cervix was grasped with a single tooth tenaculum. A paracervical block was placed with 10cc 0.25% marcaine with epinephrine. The cervix was sequentially dilated to 8 aaron. The suction was tested and then the suction catheter was inserted into the uterine cavity. Several passes were made until no further products of conception were obtained. The tenaculum was removed and hemostasis was obtained with pressure and monsel's solution. The speculum was removed. The patient tolerated the procedure well and was taken to the recovery room in stable condition. Estimated Blood Loss 10 Drains No Packing No Pathology Yes Complications No immediate complications Condition Stable Disposition Same day
[2023-08-11 12:44] VITALS: BP 102/59; PULSE 87; RESP 12; O2SAT 99
[2023-08-11 13:10] VITALS: BP 95/50; PULSE 71; RESP 20
[2023-08-11 13:40] VITALS: BP 103/51; PULSE 70; RESP 20
[2023-08-11 13:55] VITALS: BP 102/59; PULSE 70; RESP 20
== END 2023-08-11 14:00 | disposition home or self-care (01) ==
PROVIDERS: PCP Family Medicine; Visit Provider Obstetrics & Gynecology
PROC: (CPT 59812; principal; 2023-08-11 12:00)
DX: O02.0 Blighted ovum and nonhydatidiform mole (principal); F17.290 Nicotine dependence, other tobacco product, uncomplicated; F12.90 Cannabis use, unspecified, uncomplicated
CPT/HCPCS: 59812; 88305; A9270; J1885; J2250; J2405; J2704; J3010; J7120

== ENCOUNTER 2025-10-01 03:31 | Observation (INO) | payer OTHER, SELFPAY ==
--- OUTSIDE RECORDS SUMMARY | 2025-10-01 09:00 | XMS_ITS | Clinical Summary ---
Author Organization [facility] Address [address] [place] [address] Care Team Providers Care Architectural Manager Name Role Phone Huong Bynum MD Primary Care Provider + Allergies Active Allergy Reactions Criticality Noted Date Comments Raspberry Hives Medium 10/16/2022 Varicella Vaccines Hives Medium 10/16/2022 Social History Tobacco Use Types Packs/Day Years Used Date Smoking Tobacco: Never Assessed Personal Safety Answer Date Recorded Getting School Help Needed Not on file 01/23 Comments Unknown Sex and Gender Information Value Date Recorded Sex Assigned at Not on file Legal Sex Female 4:15 PM INCLUSION SPECIALIST Gender Identity Not on file Sexual Orientation Not on file Last Filed Vital Signs Vital Sign Reading Time Taken Comments Blood Pressure 113/65 10/16/2022 4:24 PM INCLUSION SPECIALIST Pulse 108 10/16/2022 4:24 PM INCLUSION SPECIALIST Temperature 36.7 C (98 F) 10/16/2022 4:24 PM INCLUSION SPECIALIST Respiratory Rate 22 10/16/2022 4:24 PM INCLUSION SPECIALIST Oxygen Saturation 100% 10/16/2022 4:24 PM INCLUSION SPECIALIST Inhaled Oxygen Concentration - - Weight 74.8 kg (165 lb) 10/16/2022 4:24 PM INCLUSION SPECIALIST Height - - Body Mass Index - - Plan of Treatment Health Maintenance Due Date Last Done Comments Cervical Cancer Screening 2001 Depression Screening 2001 Hepatitis C Screening 2001 DTaP/Tdap/Td Vaccine (1 - Tdap) 2012 Varicella Vaccines (1 of 2 - 13+ 2-dose series) 2014 HPV Vaccines (1 - 3-dose series) 2016 Meningococcal B Vaccine (1 o f 2 - Standard) 2017 Hepatitis B Screening 2019 Regular Well Visit/Exam 18-64 2019 Influenza Vaccine (#1) 2025 09/18/2021 Pneumococcal vaccine <65 Aged Out No longer eligible based on patient's age to complete this topic Insurance Care Teams Architectural Manager Relationship Specialty Start Date End Date Huong Bynum MD [address] [place] [address] [id number] PCP - General Family Medicine 10/16/22
--- OUTSIDE RECORDS SUMMARY | 2025-10-01 09:00 | XMS_ITS | Data Portability ---
Author Organization [facility] [place], Main Office Address [address] [place] [address] Assessment No assessment recorded. Plan of Treatment Reminders Order Date Submit Date Provider Last Modified By Organization Details Last Modified Time Details Appointments None recorded. Lab None recorded. Referral psychiatris t referral [email or web address], [address] [place] [address] , [place], [address], 3 09:57:[address] referral 2022 023 [place] [address] Sussy Eisenberg MD, [address] [place], [address], 3 09:57:32 Procedures None recorded. Surgeries None recorded. Imaging None recorded. Medication Orders ondansetron HCl 4 mg tablet 2022 023 [id number], [address], [place], [place], [id number], 3 11:11:59 bupropion HCl 150 mg tablet,12 hr sustained-r elease(smok ing deterrent) 2022 023 [facility] [employer] #[id number], [address], [place], [place], [id number], 3 13:07:34 triamcinolo ne acetonide 0.1 % topical cream 2022 023 [facility] [employer] #[id number], [address], [place], [place], [id number], 13:07:35 Patient TargetsNo targets recorded. Patient InstructionsNo instructions recorded. Reason for Referral Psychiatrist Referral for Pi cking own skin Referring Physician: Giovana Lozano [facility] Medicine, Encounter Date: 04/23/2023 Insurance Clerk Referral for E czema Referring Physician: Giovana Lozano [facility], Encounter Date: 04/23/2023 Results Created Date Observation Date Name Description Value Unit Range Abnormal Flag Note LastModifiedBy Organization Detail LastModifiedTime 06/10/2006/10/2023 pregn radha test, urine HCG negati ve Not Available [facility] [address], [place], [address], 06/10/2023 09:29:08 Result Notes None recorded. Problems Name Problem SNOMED Code Status Onset Date Resolution Date Notes Provider Name and Address Organization Details Recorded Time Acne 88696179 Active Not Available [facility] 3 16:26:09 Eczema 22387685 Active Not Available [facility] 3 16:26:09 Irritable bowel syndrome 80165991 Active 2019 Not Available [facility] 3 16:26:09 COVID-19 341096725 Active 2020 Not Available [facility] 3 16:26:09 Cigarette smoker 70960257 Active 2022 RUBY Caicedo [address] [facility], [facility] [address], [place], [address] , [employer] 3 13:05:02 Mood disorder 17270580 Active 2022 RUBY Caicedo [address] [facility], [facility] [address], [place], [address] , [email or web address] 3 13:07:19 Nausea and vomiting 94537653 Active 2022 RUBY Caicedo [address], [place], [address] , [employer] 3 11:06:49 Amenorrhea 30029488 Active 2022 Houng Bynum MD [address], [place], [address] , [email or web address] [facility] 3 09:29:05 Problem Notes None recorded. Medical Equipment None Reported. Allergies Allergen ID Allergen Name Allergen Category Reaction Reaction Severity Criticality Documentation Date Start Date Code Code System Note Provider Name and Address Organization Details Recorded Time 35537 raspberry extract food,medi cation Not available Not available Not available 01/21/2023 82158 69 RxNorm Not Available [facility] 3 16:26:44 Medications Name Sig Start Date Stop Date Status Note LastModified by Organization Details LastModified Time lamotrigi ne 150 mg tablet TAKE 1 TABLET BY MOUTH EVERY DAY 06/04 completed Not Available Not Available Not Available nicotine 14 mg/24 hr daily transderm al patch Apply 1 patch every day by transder mal route. 06/04 completed Not Available Not Available Not Available nabumeton e 750 mg tablet TK 1 T PO BID 08/10 completed Not Available Not Available Not Available triamcino lone acetonide 0.5 % topical cream 06/20 completed Not Available Not Available Not Available ondansetr on HCl 4 mg tablet TAKE 1 TO 2 TABLETS BY MOUTH THREE TIMES DAILY NEEDED FOR NAUSEA active Not Available Not Available No t Available prednison e 20 mg tablet TAKE 2 TABLETS BY MOUTH DAILY FOR 5 DAYS 04/23 completed Not Available Not Available Not Available tramadol 50 mg tablet TAKE 1 TABLET BY MOUTH DAILY NEEDED FOR SEVERE MENSTRUA L CRAMPS 04/23 completed Not Available Not Available Not Available triamcino lone acetonide 0.1 % topical cream APPLY A THIN LAYER TO THE AFFECTED AREA(S) BY TOPICAL ROUTE 2 TIMES PER DAY active Not Available Not Available No t Available amoxicill in 500 mg tablet Take 1 tablet every 12 hours by oral route for 10 days. active Not Available Not Available No t Available lamotrigi ne 25 mg tablet TAKE 1 TABLET BY MOUTH EVERY DAY FOR 20 DAYS active Not Available Not Available No t Available propranol ol 10 mg tablet Take 1 tablet 3 times a day by oral route as needed for 30 days. 04/23 completed pt stopped Not Available Not Available Not Available famotidin e 20 mg tablet Take 1 tablet twice a day by oral route for 30 days. 04/23 completed Not Available Not Available Not Available dicyclomi ne 20 mg tablet TAKE 1 TABLET BY MOUTH THREE TIMES DAILY FOR ABDOMINA L CRAMPS 04/23 completed Not Available Not Available Not Available ranitidin e 150 mg tablet Take 1 tablet twice a day by oral route for 30 days. 06/20 completed Not Available Not Available Not Available promethaz ine 25 mg tablet Take 1 tablet every 4 hours by oral route. active Not Available Not Available No t Available polymyxin B sulfate 10,000 unit-trim ethoprim 1 mg/mL eye drops INSTILL 1 DROP INTO AFFECTED EYE(S) BY OPHTHALM IC ROUTE EVERY 6 HOURS 04/23 completed Not Available Not Available Not Available fluoxetin e 10 mg capsule Take 1 capsule every day by oral route for 30 days. active Not Available Not Available No t Available omeprazol e 20 mg capsule,d elayed release Take 1 capsule every day by oral route for 30 days. 06/20 completed Not Available Not Available Not Available ergocalci ferol (vitamin D2) 1,250 mcg (50,000 unit) capsule active Not Available Not Available Not Available clobetaso l 0.05 % topical ointment PAPITO THIN LAYER EXT AA BID FOR UP TO 14 DAYS 04/23 completed Not Available Not Available Not Available ibuprofen 600 mg tablet Take 1 tablet 3 times a day by oral route as needed for 30 days. active Not Available Not Available No t Available methylpre dnisolone 4 mg tablets in a dose pack FOLLOW PACKAGE DIRECTIO NS 06/04 completed Not Available Not Available Not Available albuterol sulfate HFA 90 mcg/actua tion aerosol inhaler INHALE 2 PUFFS BY MOUTH EVERY 4 TO 6 HOURS NEEDED FOR SHORTNES S OF BREATH OR WHEEZING active Not Available Not Available No t Available hydroxyzi ne HCl 10 mg tablet TAKE ONE TAB PO TID PRN ANXIETY active Not Available Not Available No t Available ondansetr on 4 mg disintegr ating tablet DISSOLVE 1 TABLET ON THE TONGUE EVERY 6 HOURS NEEDED FOR NAUSEA OR VOMITING 04/23 completed Not Available Not Available Not Available neomycin 3.5 mg-polymy shukri 10,000 unit-hydr ocort 10 mg/mL eye drop,susp INSTILL 1 DROP INTO AFFECTED EYE(S) BY OPHTHALM IC ROUTE EVERY 4 HOURS X 7 DAYS 06/20 completed Not Available Not Available Not Available fluticaso ne propionat e 50 mcg/actua tion nasal spray,abimael pension Tarpley 1 spray every day by intranas al route for 30 days. 06/20 completed Not Available Not Available Not Available clotrimaz ole 1 % topical cream APPLY 1 APPLICAT ION BID TOPICALL Y FOR 7 DAYS 08/10 completed Not Available Not Available Not Available lamotrigi ne 100 mg tablet TAKE 1 AND 1/2 TABLETS BY MOUTH AT NIGHT 04/23 completed pt stopped Not Available Not Available Not Available hydroxyzi ne pamoate 25 mg capsule TAKE 1 TO 2 CAPSULES BY MOUTH EVERY DAY NEEDED FOR ANXIETY OR SLEEP 10/15 completed Not Available Not Available Not Available neomycin- polymyxin -hydrocor t 3.5 mg-10,000 unit/mL-1 % ear drops,abimael p 06/20 completed Not Available Not Available Not Available Sprintec (28) 0.25 mg-0.035 mg tablet Take 1 tablet every day by oral route. active Not Available Not Available No t Available aripipraz ole 5 mg tablet TAKE 1 TABLET BY MOUTH EVERY DAY 04/23 completed pt stopped Not Available Not Available Not Available bupropion HCl XL 150 mg 24 hr tablet, extended release TAKE 1 TABLET BY MOUTH ONCE DAILY 04/23 completed pt stopped Not Available Not Available Not Available TriNessa (28) 0.18 mg(7)/0.2 15 mg(7)/0.2 5 mg(7)-35 mcg tablet TK 1 T PO QD 02/25 completed Not Available Not Available Not Available Lo Loestrin Fe 1 mg-10 mcg (24)/10 mcg (2) tablet TK 1 T PO QD 08/10 completed Not Available Not Available Not Available Junel Fe 24 1 mg-20 mcg (24)/75 mg (4) tablet TAKE 1 TABLET BY MOUTH EVERY DAY WITH A MEAL 04/23 completed pt stopped Not Available Not Available Not Available selenium sulfide 2.5 % lotion 06/20 completed Not Available Not Available Not Available Vraylar 1.5 mg capsule Take 1 capsule every day by oral route. 04/17 completed Not Available Not Available Not Available Vraylar 3 mg capsule Take 1 capsule every day by oral route. 04/17 completed Not Available Not Available Not Available bupropion HCl 150 mg tablet,12 hr sustained -release( smoking deterrent ) TAKE 1 TABLET PO BID active Not Available Not Available No t Available Vitals Date Recorded Body mass index (BMI) Body height Body temperature Body weight Provider Name and Address Organization Details Last Updated DateTime 12/10/2021 33.8 kg/m2 157.48 cm 96.9 [degF] 25284.59 g Not Available [facility] 01/21/2023 16:25:58 Date Recorded Body height Body mass index (BMI) Body weight Body temperature Heart rate Oxygen saturation Oxygen saturation in Arterial blood by Pulse oximetry Systolic And Diastolic Provider Name and Address Organization Details Last Updated DateTime 3 157.48 cm 30.5 kg/m2 34563.9 3 g 98.4 [degF] 73 /min 99 % 99 % 112/58 mm[Hg] Alicja Wan RN [facility] [place] 3 12:52:49 Date Recorded Body height Body mass index (BMI) Body weight Body temperature Heart rate Oxygen saturation Oxygen saturation in Arterial blood by Pulse oximetry Systolic And Diastolic Provider Name and Address Organization Details Last Updated DateTime 3 157.48 cm 31.1 kg/m2 03981.7 g 97.2 [degF] 65 /min 96 % 96 % 112/70 mm[Hg] ANGUS Esposito [facility] [employer] [facility] 3 10:37:50 Date Recorded Body mass index (BMI) Body height Oxygen saturation Oxygen saturation in Arterial blood by Pulse oximetry Heart rate Body temperature Body weight Systolic And Diastolic Provider Name and Address Organization Details Last Updated DateTime 2 34 kg/m2 157.48 cm 99 % 99 % 90 /min 97.6 [degF] 37268.1 8 g 118/84 mm[Hg] Not Available [facility] 3 16:25:54 Date Recorded Body height Provider Name an d Address Organization Details Last Updated DateTime 06/10/2023 157.48 cm Rosie Herrera CMA [place] [facility] 06/10/2023 10:03:30 Social History Question Answer Notes LastModified by Organizat ion Details LastModified Time Tobacco Smoking Status Never Smoker Not Available [employer] 01/21/2023 16:25:40 What Is Your Level Of Caffeine Consumption? Occasional [id number] Information not available 01/21/2023 How Much Tobacco Do You Chew? None [id number] Information not available 01/21/2023 What Type Of Diet Are You Following? REGULAR [id number] Information not available 01/21/2023 Which Illicit Or Recreational Drugs Have You Used? [place] [id number] Information not available 01/21/2023 Are There Any Guns Present In Your Home? No [id number] Information not available 01/21/2023 How Much Tobacco Do You Smoke? No [id number] Information not available 01/21/2023 Has Tobacco Cessation Counseling Been Provided? No [id number] Information not available 01/21/2023 Do You Have Any Dietary Restrictions? No [id number] Information not available 01/21/2023 Sex: Unknown Functional Status Question Answer Note LastModified by Organizat ion Details LastModified Time What is your level of alcohol consumption? None [id number] Information not available 01/21/2023 Do you or have you ever used smokeless tobacco? 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 Current user of electronic cigarettes couple of yrs now [id number].[id number] Information not available 01/21/2023 What is your exercise level? Moderate [id number] Information not available 01/21/2023 Mental Status Question Answer Note LastModified by Organization D etails LastModified Time Do you feel stressed (tense, restless, nervous, or anxious, or unable to sleep at night)? [id number] [email or web address] Information not available 04/23/2023 Family History Relationship Description Onset Age of this Age Resolved Age Notes LastModified by Organization Details LastModified Time Maternal Grandfather Diabetes mellitus [id number] Not available 01/21/2023 16:25:46 Maternal Grandmother Family history of malignant neoplasm [id number] Not available 01/21/2023 16:25:46 Maternal Grandmother Multiple myeloma [id number] Not available 01/21/2023 16:25:46 Medical History Condition Response BLINDNESS N RHEUMATIC FEVER N KIDNEY STONES N BLADDER PROBLEMS N MRSA N OTHER # 1 N POLIO N LUNG DISEASE/DISORDER N RADIATION / CHEMOTHERAPY N COPD N Other # 2 N BLOOD DISEASES N SURGERY N EAR OR HEARING PROBLEMS N MUMPS N BOWEL PROBLEMS N FEMALE PROBLEMS / INFECTIONS N DEPRESSION (INCLUDING POST ) N STROKE/TIA N THYROID DISEASE N ULCERS N BENIGN PROSTATIC HYPERPLASIA N MEASLES N CERVICALGIA N TB SKIN TEST N MYOCARDIAL INFARCTION N PARAPELGIA N OBESITY N GERD/NAUSEA N ANEURYSM N URINARY/BLADDER/KIDNEY PROBLEMS N CORONARY ARTERY DISEASE (CAD) N MENIERE'S DISEASE N ADDICTION CONCERNS N ENDOMETRIOSIS N USE OF BLOOD THINNERS N SKIN PROBLEMS N EMPHYSEMA N GASTROINTESTINAL DISORDER N MUSCLE,JOINT OR BONE PROBLEMS N GASTROINTESTINAL BLEEDING N BLOOD CLOTS N ASTHMA N CATARACTS N ERECTILE DYSFUNCTION N GI PROBLEMS N CHF N Low Testosterone N NEUROPATHY N INFERTILITY N AIDS/HIV N FRACTURES N CHEMOTHERAPY / RADIATION N VISION/EYE PROBLEMS N LIVER DISEASE N MALE HYPOGONADISM N HYPERTENSION N TOURETTE'S N ANXIETY DISORDER Y BLOOD TRANSFUSION N ANEMIA/BLOOD DISORDER N CHRONIC EAR INFECTIONS N BRONCHITIS N TUBERCULOSIS N GLAUCOMA N FOOT PROBLEM N DIVERTICULITIS N CHICKENPOX N SLEEP APNEA N ALLERGIES/HAYFEVER N INFECTIOUS DISEASE N HEART ARRHYTHMIA N PROSTATE N INSOMNIA N HIGH CHOLESTEROL / HYPERLIPIDEMIA N HYPERTHYROIDISM N EYE PROBLEMS N EATING DISORDER N EDEMA N CHRONIC PAIN SYNDROME N CAROTID BLOCKAGE N CONSTIPATION N BACK / NECK PROBLEMS N HAVE YOU BEEN HOSPITALIZED OR SEEN IN [facility] IN THE PAST YEAR ? N ATHEROSCLEROSIS N BREAST PROBLEMS N DIALYSIS N ECZEMA N FIBROMYALGIA N OSTEOPOROSIS N ARTHRITIS N NO SIGNIFICANT PAST MEDICAL HISTORY N APPENDICITIS N DIABETES, TYPE N BAD TEETH N HEARTBURN / REFLUX N ADD/ADHD N AUTISM SPECTRUM DISORDER (ASD) N HEPATITIS / LIVER DISEASE N PULMONARY DISEASE N GOUT N SLEEP DISORDER N ALZHEIMER'S DISEASE N PAIN N HERPES N DEMENTIA N HEADACHES/MIGRAINES N SEIZURES/EPILEPSY N VASCULAR DISEASE N PACEMAKER N DIZZINESS N HEART DISEASE/HEART PROBLEMS N KIDNEY DISEASE N DEVELOPMENTAL OR BEHAVIORAL DISORDERS N MULTIPLE SCLEROSIS N SCARLET FEVER N MENTAL DISORDER/ILLNESS N CARDIAC ARRHYTHMIA N CANCER: SPECIFY N PNEUMONIA N ATRIAL FIBRILLATION N Gall Stones N PULMONARY EMBOLISM N AUTOIMMUNE DISEASE N Gynecological History Statement/Question Response Flow Heavy Date of LMP 05/01/2023 Sexually Active? Y Menses Monthly N STIs/STDs N Duration of Flow (days) 7 Current Control Method None Age at Menarche 12 Breast Problems no Obstetrics History GPAL:G 0 P 0 0 0 0 Immunizations Vaccine Type Date Status Note Provider Nam e and Address Organization Details Recorded Time Hep A, ped/adol, 2 dose 6 completed Not Available [facility] 01/21/2023 16:26:43 HPV, quadrivalent 5 completed Not Available [facility] 01/21/2023 16:26:43 Influenza, split virus, quadrivalent, PF 8 completed Not Available [facility] 01/21/2023 16:26:43 HPV, quadrivalent 6 completed Not Available [facility] 01/21/2023 16:26:43 HPV, quadrivalent 5 completed Not Available [facility] 01/21/2023 16:26:43 HPV, quadrivalent 5 completed Not Available [facility] 01/21/2023 16:26:43 Influenza, split virus, quadrivalent, PF 7 completed Not Available [facility] 01/21/2023 16:26:43 Past Encounters Encounter ID Performer Location Encounter Start Date Encounter Closed Date Diagnosis/Indication Diagnosis SNOMED-CT Code Diagnosis ICD10 Code Diagnosis IMO Codes Diagnosis Note [id number] RUBY Caicedo [address] [place] [address] 03/22/2021 00:00:00 03/22/2021 12:36:42 [id number] RUBY Caicedo [address] [place] [address] 04/10/2021 00:00:00 04/10/2021 19:40:56 [id number] RUBY Caicedo [address] [place] [address] 04/17/2021 00:00:00 04/17/2021 20:22:47 [id number] Huong Bynum MD [facility] [address] [facility] [address] [place] [address] 10/15/2021 00:00:00 10/15/2021 14:47:21 [id number] ABBEY Jordan [facility] [address] [facility] [address] [place] [address] 12/10/2021 00:00:00 12/10/2021 09:31:49 [id number] RUBY Caicedo [facility] Primary [facility] [address] [facility] [address] [place] [address] 06/04/2022 00:00:00 06/04/2022 16:20:29 [id number] RUBY Caicedo [facility] Primary [facility] [address] [facility] [address] [place] [address] 04/23/2023 12:47:01 04/23/2023 13:32:58 Eczema 03697168 L30.9 ChroncCurr ently mild sxdiscusse d in detail treatment for eczema including demonstrat ion of various lotions/cr eams/zelalem leum. discussed moisturizi ng soaps, unscented/ mild products and detergents . discussed limited time for bathing, pat dry, apply medication and then emollient. discussed use of steroid cream until flareup resolved however if more than 3-4 weeks to hold steroid for 1-2 weeks then resume.Jemal matology referral generated. Picking own skin 1408181 00 X83.8XXA ChronicSus pect sx are driven by poorly controlled anxiety sx.Will resume bupropion first since pt also wants to work on quitting vape. Plan to add lamotrigin e back in next visit.Psyc hiatry referral generated. Nicotine-f illed electronic cigarette user [id number] Z72.89 ChronicVap ingEncoura ged smoking cessation. Smoking cessation counseling and techniques reviewed at length with pt. Literature reviewed. Avoid triggers, support groups. Discussed cessation options (counselin g, medication s, e-cigarett es, patches, alternativ e therapies) . Start bupropion 150mg BID Mood disorder 67781283 F 40 Chronic, not well controlled off medication .Highly encouraged pt to resume counseling . Denies any SI/HI at this time. Resume bupropion 150mg BID to aid with mood and smoking cessation efforts. Pt to stop medication and be seen if s/e develop.. --RTO 4 weeks for f/u on medication [id number] RUBY Caicedo [facility] [address] [place] [address] 05/21/2023 10:31:34 05/21/2023 11:14:13 Picking own skin 984807702 X83.8XXA ChronicSus pect sx are driven by poorly controlled anxiety sx.Mental health managed by [facility]. They have put meds on hold pending testing. Mood disorder 48331409 F 40 Chronic, not well controlled off medication .Highly encouraged pt to resume counseling . Denies any SI/HI at this time. Meds on hold per psych pending testing. Nausea and vomiting 1693 1999 R11.2 New problempre gnancy vs gastritis vs anxietyPat ient was seen in the office today for nausea. Reviewed history regarding recent illness, medication s, symptoms, and physical exam. Discussed plan with patient, who expresses understand ing. Start nausea meds as directed. Will plan to repeat testing in 2 weeks. Follow up as noted below. [id number] Huong Bynum MD [facility] [address] [place] [address] 06/10/2023 09:16:13 06/10/2023 10:16:42 Health Concerns Section Related Observation LastModified by Organization Detai ls LastModified Time None Recorded Concern Status LastModified by Organization Details LastModified Time None Recorded Advance Directives Directive None Recorded Payers Insurance Date Sequence Insurance Name Policy Number Policy Hays Covered Member ID Hays Member ID Guarantor Name 02/10/2024 1 [facility] - DOS ON OR AFTER 21 (MEDICAID REPLACEMENT - HMO) Kari Simons [id number] Kari Simons Notes Date Note Type Note Provider Name and Address Organization Details Recorded Time 04/23/2023 text/html 1. Pt in office for problem visit with c/o having eczema on her hands since she was a teenager. Pt states she isn't getting much relief with otc Eucerin cream anymore. Pt states sx are the worst on her middle fingers. States rash is on the backs of her fingers, but is starting to wrap around to the pads and under the nail. Pt states over the winter she also got patches on her face on either side of her mouth.2. Pt states she has been using a nicotine-filled vape and would like to quit.3. Pt states she believes she has ocd. Was previously seeing provider at [facility], but stopped going when the provider left and stopped taking all of her mental health meds. States she thinks she needs to be back on medication. Giovana Lozano, [employer] [address] [facility], [facility] [address], [place], [address], [place] [facility] [employer] 04/23/2023 13:13:59 05/21/2023 text/html 05/21/23: 1. Pt in office for problem visit. Pt states she has been feeling off since the . Pt states started having nausea vomiting a couple of days later. States she didn't think much of it until the b/c she continued to have vomiting. States it comes in waves. Sometimes she vomits, sometimes she's just nauseated. Pt states that she called off work on the / of the nausea. Pt states she started cramping on Thursday. Pt states she had lab work done at [facility] and was told blood work showed she was not , but she is still very concerned that she may be. Pt states that her cycles have been a little off for the past few months, but next cycle isn't due until 06/01. Pt states she has been crying a lot and was told to hold off on meds until they got her test back. States she is supposed to f/u with them in about a month. 04/23/23: 1. Pt in office for problem visit with c/o having eczema on her hands since she was a teenager. Pt states she isn't getting much relief with otc Eucerin cream anymore. Pt states sx are the worst on her middle fingers. States rash is on the backs of her fingers, but is starting to wrap around to the pads and under the nail. Pt states over the winter she also got patches on her face on either side of her mouth.2. Pt states she has been using a nicotine-filled vape and would like to quit.3. Pt states she believes she has ocd. Was previously seeing provider at [facility], but stopped going when the provider left and stopped taking all of her mental health meds. States she thinks she needs to be back on medication. Giovana Lozano, [employer] [address] [facility], [facility] [address], [place], [address], [facility] [place] 05/21/2023 13:30:18 OBGyn Episode No OBEpisode recorded.
--- OUTSIDE RECORDS SUMMARY | 2025-10-01 09:00 | XMS_ITS | Patient Health Record ---
Author Organization [facility] Address [address] [place] [address] Care Team Providers Care Team Supervisor Name Role Phone Rachelle Nuñez Primary Care Provider Allergies Allergen (clinical drug ingredient) Drug/Non Drug Allergy documented on EMR Reaction Allergy Type Onset Date Status Varicella Virus Vaccine Live Unknown Drug Allergy Active Reason For Referral No Information Medications Medication SIG (Take, Route, Frequency, Duration) Notes Start Date End Date Status LaMICtal 25 MG 1 tablet orally once daily for 2 weeks then 2 tabs for 2 weeks (DC if rash) Orally at night; Duration: 30 days Active buPROPion HCl 150 MG 1 tablet Orally daily; Duration: 30 days started by PCP 2 weeks ago Active Ines 24 Fe 1-20 MG-MCG(24) 1 tablet Orally Once a day; Duration: 28 day(s) Not-Taking Influenza Vac Split Quad 0.5 ML as directed Intramuscular once completed Not-Taking Vistaril 25 MG 1-2 capsule as needed Orally once daily as needed for anxiety or sleep; Duration: 30 day(s) Active Immunizations Vaccine Route Administration Date Status Comme nts FLU VAC NO PRSV 4VAL 6 mo+ IM Intramuscular 09/18/2021 Administered Patient tolerat ed well. Social History Tobacco Use: Social History Observation Description Date Details (start date - stop date) Unknown Sex Assigned At : Social History Observation Description Sex Assigned At Female Dont use, Tobacco Use/Smoking Question Answer Notes Are you a Uses tobacco in other forms Additional Findings: Tobacco User e-Cigarette Alcohol Screen (Audit-C) Question Answer Notes Did you have a drink contain ing alcohol in the past year? Yes How often did you have a dri nk containing alcohol in the past year? 2 to 4 times a month (2 points) How many drinks did you have on a typical day when you were drinking in the past year? 1 or 2 drinks (0 point) How often did you have 6 or more drinks on one occasion in the past year? Never (0 point) Points 2 Interpretation Negative Section Notes: No recent per PDMP Problems Problem Type SNOMED Code ICD Code Onset Dates Problem Status W/U Status Risk Notes Problem Generalized anxiety disorder (31330319) Generalized anxiety disorder (F41.1) 04/29/20 21 Active confirmed FIDEL-7 18 Problem Bipolar 1 disorder (894785094) Bipolar 1 disorder (F31.9) 12/09/19 23 Active confirmed PREVIOUS DIAGNOSIS and initial MDQ 8/13 AND PHQ-9 17. Recent reported angelo episode lasting 3-4 weeks Problem Vitamin D deficiency (78133549) Vitamin D deficiency (E55.9) Active confirmed Problem Bipolar affective disorder, currently depressed, moderate (943499246) Bipolar disorder with moderate depression (F31.32) 04/29/20 21 Active confirmed PREVIOUS DIAGNOSIS and initial MDQ 8/13 AND PHQ-9 17 Plan Of Treatment No Information Insurance Providers Payer Name Payer Address Payer Phone Subscriber Number Group Number Insured Name Patient Relationship to Insured Coverage Start Date Coverage End Date [facility] Att Claims Department [address] [place] [address] [phone] [id number] Kari Simons Self - patient is the insured 1 [employer] [facility] [address] [place] [address] [phone] [id number] Kari Simons Self - patient is the insured 1 Medical (General) History Medical History History ICD Code anxiety bipolar depression exczema Surgical History Surgery Date(Month/Year) colonoscopy 2019 Hospitalization History Reason Date(Month/Year)
--- OUTSIDE RECORDS SUMMARY | 2025-10-01 09:00 | XMS_ITS | Data Portability ---
Author Organization [facility] Address [address] [place] [address] [place] [address] Assessment Encounter Date Assessment Date Assessment LastModified by Organization Details LastModified Time 08/19/2023 08/19/2023 s/p suction D and C, recovering well. normal post op exam preg test neg today Follow up WWE 2 mos support given [email or web address] Not available 08/19/2023 15:12:18 Plan of Treatment Reminders Order Date Submit Date Provider Last Modified By Organization Details Last Modified Time Details Appointments None recorded. Lab test, urine 2022 023 BELLA Zelaya, [address], [address], [place], [address], 13:58:46 Referral None recorded. Procedures None recorded. Surgeries None recorded. Imaging US, obstetric, 1st trimester 2024 025 eliza [facility], [address], [address], [place], [address], 5 18:12:26 US, obstetric, transvagina l 2022 023 eliza [facility], [address], [address], [place], [address], 16:42:37 Medication Orders ondansetron 8 mg disintegrat ing tablet 2024 025 BELLA [id number], [address], [place], [place], [id number], 16:28:56 Patient TargetsNo targets recorded. Patient InstructionsNo instructions recorded. Reason for Referral None Reported. Results Created Date Observation Date Name Description Value Unit Range Abnormal Flag Note LastModifiedBy Organization Detail LastModifiedTime 08/19/2008/19/2023 pregn radha test, urine HCG negati ve Not Available [facility] [address], [place], [address], 08/19/2023 10:38:04 02/21/20 25 02/20/2025 IMAGE GUIDE D PAP, REFLE X HPV IF ASCUS ONLY image guided Pap, reflex HPV ASCUS only SEE RESULT S BELOW CASE REPOR T: Cytol ogy Gynec ologi corey Repor t Case: [id number] Autho francisca lee Provi sabra: Ramana Redding MD Colle cted: 02/20 1600 Order ing Locat ion: [place] [facility] Recei ivet: 02/21 0930 First Scree n: Krishan Bagley ed, CT Speci men: Scree leonardo Pap - Image d, Cervi x STATE MENT OF ADEQU ACY: Satis facto ry for evalu ation Trans forma tion zone compo nent prese nt ----- ----- ----- ----- ----- ----- ----- ----- ----- ----- ----- ----- ----- ----- ----- ----- ----- ---- FINAL DIAGN OSIS: Negat edwin for Intra epith elial Lesio n or Kimberley maldonado (NIL) . Elect alia holcomb d by Krishan Bagley ed, CT on 025 at 1815 CDT ----- ----- ----- ----- ----- ----- ----- ----- ----- ----- ----- ----- ----- ----- ----- ----- ----- ---- COMME NT: This speci men was revie wed by a Cytot echno logis t and/o r Patho logis t (as indic ated in this repor t) after evalu ation using the Thinp rep Imagi ng Syste m. CLINI COREY INFOR MATIO N: Menst rual Statu s: LMP (if appli cable ): Clini corey Histo ry/Pr eviou s Pap: Type of Neopl fritz (if appli cable ): Signi fican t Clini corey Findi ngs: Other Histo ry: Hormo rachna (if appli cable ): PAP EDUCA MAURO L NOTE: The Pap Test is a scree leonardo test with an inher ent false negat edwin rate. Liqui d-bas ed sampl ing may decre ase, but will not elimi venecia, false negat edwin resul ts. A negat edwin resul t does not precl ude the prese nce and/o r devel opmen t of disea se, since the prese nce of abnor mal cells in the sampl e depen ds on the locat ion of the lesio n and sampl ing techn ique. Esteban nued regul ar scree leonardo is the best metho d of cance r preve ntion . If repor malathi cytol ogic findi ng do not corre late with physi corey and/o r histo rical findi ngs, furth er inves tigat ion is recom hussain d, as clini guille sebastian nted. Not Available [facility] (Lab) [address], [place], [address], 02/23/2025 19:18:22 02/21/2002/20/2025 TRICH OMONA S VAGIN JASVIR (RRNA ) trichomonas vaginalis ribosomal RNA (rrna) Negati ve negati ve Not Available [facility] (Lab) [address] [place], [address], 02/23/2025 19:18:22 02/21/20 25 02/20/2025 CT/GC ([place]) , THINP REP VIAL chlamydia trachomatis, PCR Negati ve negati ve Not Available [facility] (Lab) [address], [place], [address], 02/23/2025 19:18:22 02/21/20 25 02/20/2025 CT/GC ([place]) , THINP REP VIAL neisseria gonorrhoeae, PCR Negati ve negati ve Not Available [facility] (Lab) [address], [place], [address], 02/23/2025 19:18:22 07/23/20 23 07/23/2023 US, obste tric, follo w-up No observ ation record ed. [email or web address] Y[facility] [address], [place], [address], 07/23/2023 22:05:43 07/23/20 23 07/23/2023 US, obste tric, trans vagin al No observ ation record ed. [email or web address] [place] [address] [address], [place], [address], 07/23/2023 12:12:52 07/28/20 23 07/28/2023 US, obste tric, trans vagin al No observ ation record ed. [email or web address] [address], [place], [address], 07/28/2023 18:20:29 07/28/20 23 07/28/2023 US, obste tric, trans vagin al No observ ation record ed. [email or web address] Yasmine [address], [place], [address], 07/29/2023 07:26:11 02/21/20 25 02/20/2025 US, obste tric, 1st trime ster No observ ation record ed. [email or web address] [facility] [address], [place], [address], 02/20/2025 15:59:20 02/21/20 25 02/20/2025 US, obste tric, follo w-up No observ ation record ed. [email or web address] Yasmine [address], [place], [address], 02/21/2025 23:11:00 Result Notes None recorded. Problems Name Problem SNOMED Code Status Onset Date Resolution Date Notes Provider Name and Address Organization Details Recorded Time Syphilis test finding 845268024 Completed 201704/03/2021 Encounte r for STD screenin g;Record ed Elsewher e: No Locat ion: [facility] S ource: EHR Enlisted Aircrew/Aerial Observer/Gunner edgar: N Practi ce ID: 0001 Christiano lable Time: 02:45:00 PM Reena [place] [facility] 17:02:[address] Concept Completed 201704/03/2021 Well woman check w/o abnormal finding; Recorded Elsewher e: No Locat ion: [facility] S ource: EHR Enlisted Aircrew/Aerial Observer/Gunner edgar: N Practi ce ID: 0001 Christiano lable Time: 02:45:00 PM Reena [place] [facility] 17:02:[address] Concept Completed 201704/03/2021 Encntr for routine child health exam w/o abnormal findings ;Recorde d Elsewher e: No Locat ion: [facility] S ource: EHR Enlisted Aircrew/Aerial Observer/Gunner edgar: N Practi ce ID: 0001 Christiano lable Time: 02:45:00 PM Reena Wade [facility] 17:02:06 Contrace ptive sheath status [id number] Completed 201704/03/2021 Encounte r for initial prescrip tion of other contrace ptives;R ecorded Elsewher e: No [facility]: EHR Enlisted Aircrew/Aerial Observer/Gunner edgar: N Carlosti ce ID: 0001 Christiano lable Time: 02:30:00 PM Reena khanna [facility] 17:02:03 Procedur e Completed 201704/03/2021 Enctr srvlnc implanta ble subderma l contrace ptive;Re corded Elsewher e: No Locat ion: [facility] S ource: EHR Enlisted Aircrew/Aerial Observer/Gunner edgar: N Carlosti ce ID: 0001 Christiano lable Time: 01:30:00 PM Reena khanna, [facility] 17:02:09 Finding by site Completed 201704/03/2021 Dermatit is, unspecif ied;Luiz rded Elsewher e: No Locat ion: [facility] S ource: EHR Enlisted Aircrew/Aerial Observer/Gunner edgar: N Carlosti ce ID: 0001 Christiano lable Time: 01:30:00 PM Reena khanna [facility] 17:02:01 Pregnanc y test negative [id number] Completed 201704/03/2021 Encounte r for pregnanc y test, result negative ;Recorde d Elsewher e: No Locat ion: [facility] S ource: EHR Enlisted Aircrew/Aerial Observer/Gunner edgar: N Carlosti ce ID: 0001 Christiano lable Time: 01:30:00 PM Reena khanna, [facility] 17:02:[address] Concept Completed 201704/03/2021 Encounte r for surveill ance of other contrace ptives;P ractice ID: [id number] Reena khanna, [facility] 17:02:10 Surveill ance of contrace ption Completed 201704/03/2021 Encounte r for surveill ance of contrace ptives, unspecif ied;Luiz rded Elsewher e: No Locat ion: [facility] S ource: EHR Enlisted Aircrew/Aerial Observer/Gunner edgar: N Practi ce ID: 0001 Christiano lable Time: 03:45:00 PM [facility]:14 Problem Notes None recorded. Procedures Surgical History Date Name Laterality Status Provider Name and Address Organization Details Recorded Time 02/21/20 25 Date of Last Pap Smear completed Liset [facility] 02/20/2025 16:19:36 07/24/20 23 Dilation and Curettage completed [facility] 02/20/2025 16:21:33 12/24/19 22 Control Implant Removal completed Liz Dias [facility]- [address], [place], [address], [facility] 12/24/2021 12:12:08 11/23/19 20 completed Reena Pickardan [facility] 04/05/2021 10:12:38 11/23/19 17 Date of Last Colonoscopy completed [facility] 02/20/2025 16:20:30 11/23/19 17 Colonoscopy completed [facility] 02/20/2025 16:21:44 Imaging Results None recorded. Procedure Notes None recorded. Medical Equipment None Reported. Allergies Allergen ID Allergen Name Allergen Category Reaction Reaction Severity Criticality Documentation Date Start Date Code Code System Note Provider Name and Address Organization Details Recorded Time 24519 raspberry extract food,medi cation Not available Not available Not available 11/09/2020 84983 [id number] RxNorm Reena Olvera [facility] 1 17:03:36 40102 varicella virus vaccine live medicatio n Not available Not available Not available 07/23/2023 Shani Lewis [facility] 3 12:21:32 Medications Name Sig Start Date Stop Date Status Note LastModified by Organization Details LastModified Time lamotrigi ne 150 mg tablet TAKE 1 TABLET BY MOUTH EVERY DAY 04/29 completed Not Available Not Available Not Available triamcino lone acetonide 0.5 % topical cream apply by topical route 1 time every day a thin layer to the hands 04/03 completed Prescrib ed Elsewher e: No Locat ion: [facility] odify By: roseanna orozco DateTime : 10/22/20 18 10:58:52 AM Not Available Not Available Not Available prednison e 20 mg tablet TAKE 2 TABLETS BY MOUTH DAILY FOR 5 DAYS 07/23 completed Not Available Not Available Not Available clobetaso l 0.05 % topical cream apply by topical route every day a thin layer to the affected area(s) 10/22 completed Prescrib ed Elsewher e: No Locat ion: [facility] odify By: roseanna orozco DateTime : 10/05/20 18 01:30:00 PM Not Available Not Available Not Available tramadol 50 mg tablet Take 1 tablet twice daily by oral route to be used sparingl y for severe menstrua l cramps 07/23 completed Not Available Not Available Not Available triamcino lone acetonide 0.1 % topical cream 07/23 completed Not Available Not Available Not Available ondansetr on 8 mg disintegr ating tablet DISSOLVE 1 TABLET ON THE TONGUE TWICE DAILY active Not Available Not Available No t Available lamotrigi ne 25 mg tablet TAKE 1 TABLET BY MOUTH EVERY DAY FOR 20 DAYS 04/29 completed Not Available Not Available Not Available Celebrex 200 mg capsule Take 2 tablets initial loading dose then, 1 tablet every 12hrs prn for a max of 7 days for severe menstrua l cramps. 06/18 completed Not Available Not Available Not Available propranol ol 10 mg tablet TAKE 1 TABLET BY MOUTH THREE TIMES DAILY NEEDED 04/29 completed Not Available Not Available Not Available famotidin e 20 mg tablet TAKE 1 TABLET BY MOUTH TWICE DAILY 07/23 completed Not Available Not Available Not Available dicyclomi ne 20 mg tablet TAKE 1 TABLET BY MOUTH THREE TIMES DAILY FOR ABDOMINA L CRAMPS 07/23 completed Not Available Not Available Not Available misoprost ol [address] 4 tablets by vaginal route at bedtime. May repeat in 48 hours if vaginal bleeding does not occur. 02/20 completed Not Available Not Available Not Available polymyxin B sulfate 10,000 unit-trim ethoprim 1 mg/mL eye drops 07/23 completed Not Available Not Available Not Available clobetaso l 0.05 % topical ointment PAPITO THIN LAYER EXT AA BID FOR UP TO 14 DAYS 06/18 completed Not Available Not Available Not Available methylpre dnisolone 4 mg tablets in a dose pack FOLLOW PACKAGE DIRECTIO NS 11/06 completed Not Available Not Available Not Available albuterol sulfate HFA 90 mcg/actua tion aerosol inhaler INHALE 2 PUFFS BY MOUTH EVERY 4 TO 6 HOURS NEEDED FOR SHORTNES S OF BREATH OR WHEEZING active Not Available Not Available No t Available ketoconaz ole 2 % topical cream apply by topical route every day to the affected area(s) 10/22 completed Prescrib ed Elsewher e: No Locat ion: [facility] odify By: roseanna orozoc DateTime : 10/05/20 18 01:30:00 PM Not Available Not Available Not Available hydroxyzi ne HCl 10 mg tablet Take 1 tablet every 8 hours by oral route as needed. 06/18 completed Not Available Not Available Not Available ondansetr on 4 mg disintegr ating tablet DISSOLVE 1 TABLET ON THE TONGUE EVERY 6 HOURS NEEDED FOR NAUSEA OR VOMITING 07/23 completed Not Available Not Available Not Available lamotrigi ne 100 mg tablet TAKE 1 AND 1/2 TABLETS BY MOUTH AT NIGHT 07/23 completed Not Available Not Available Not Available hydroxyzi ne pamoate 25 mg capsule TAKE 1 TO 2 CAPSULES BY MOUTH EVERY DAY NEEDED FOR ANXIETY OR SLEEP 07/23 completed Not Available Not Available Not Available aripipraz ole 5 mg tablet TAKE 1 TABLET BY MOUTH EVERY DAY 07/23 completed Not Available Not Available Not Available bupropion HCl XL 150 mg 24 hr tablet, extended release TAKE 1 TABLET BY MOUTH ONCE DAILY 07/23 completed Not Available Not Available Not Available Tylenol 02/20 completed Not Available Not Available Not Available active Not Available Not Avai lable Not Available Nexplanon 68 mg subdermal implant Inject by subcutan eous route. 12/24 completed Not Available Not Available Not Available 1 mg-20 mcg (24)/75 mg (4) tablet TAKE 1 TABLET BY MOUTH EVERY DAY WITH A MEAL 07/23 completed Not Available Not Available Not Available selenium sulfide 2.5 % lotion apply by topical route once daily to hands 10/22 completed Prescrib ed Elsewher e: No Locat ion: [facility] odify By: roseanna orozco DateTime : 10/22/20 10:58:52 AM Not Available Not Available Not Available Vraylar 3 mg capsule Take 1 capsule every day by oral route in the morning. 08/02 completed Not Available Not Available Not Available bupropion HCl 150 mg tablet,12 hr sustained -release( smoking deterrent ) TAKE 1 TABLET BY MOUTH DAILY 07/23 completed Not Available Not Available Not Available Slynd 4 mg (28) tablet Take 1 tablet every day by oral route for 90 days. 07/23 completed Not Available Not Available Not Available Vitals Date Recorded Body height Body mass index (BMI) Body weight Systolic And Diastolic Provider Name and Address Organization Details Last Updated DateTime 02/20/2025 157.48 cm 28.2 kg/m2 53428.22 g 124/76 mm[Hg] Liset Vinson [facility] 02/20/2025 16:19:06 Date Recorded Body height Body mass index (BMI) Body weight Systolic And Diastolic Provider Name and Address Organization Details Last Updated DateTime 07/28/2023 157.48 cm 30.9 kg/m2 17936.11 g 109/72 mm[Hg] Shani Lewis [facility] 07/28/2023 14:20:49 Date Recorded Body height Body mass index (BMI) Body weight Systolic And Diastolic Provider Name and Address Organization Details Last Updated DateTime 08/19/2023 157.48 cm 30.7 kg/m2 89230.52 g 136/79 mm[Hg] Padmini Koch [facility] 08/19/2023 10:31:37 Social History Question Answer Notes LastModified by Organizat ion Details LastModified Time Tobacco Smoking Status Never Smoker Darcy khanna, [facility] 08/19/2023 10:27:51 Are You Blind Or Do You Have Difficulty Seeing? No Information n ot available 11/19/2021 What Is Your Level Of Caffeine Consumption? Moderate Information not available 02/20/2025 In The 14 Days Before Symptom Onset, Have You Had Close Contact With A Laboratory-confirm ed COVID-19 While That Case Was Ill? No Information n ot available 07/23/2023 In The 14 Days Before Symptom Onset, Have You Had Close Contact With A Person Who Is Under Investigation For COVID-19 While That Person Was Ill? No Information not available 07/23/2023 Have You Been To An Area Known To Be High Risk For COVID-19? No Information not available 07/23/2023 Are You Deaf Or Do You Have Serious Difficulty Hearing? No Information not available 11/19/2021 What Type Of Diet Are You Following? REGULAR Information n ot available 11/19/2021 What Is The Highest Grade Or Level Of School You Have Completed Or The Highest Degree You Have Received? [id number] Information not available 07/23/2023 Are There Any Guns Present In Your Home? No Information not available 07/23/2023 Do You Use Protection During Sex? No Information not available 07/23/2023 Do You Use Your Seat Belt Or Car Seat Routinely? Yes Information not available 11/19/2021 Do You Have Smoke And Carbon Monoxide Detectors In Your Home? Yes Information not available 11/19/2021 How Much Tobacco Do You Smoke? No Information not available 07/23/2023 Do You Use Sunscreen Routinely? No Information not available 07/23/2023 Have You Used IV Drugs? No Information not available 07/23/2023 Do You Have Difficulty Walking Or Climbing Stairs? No [email or web address] Information not available 02/20/2025 Sex: Unknown Functional Status Question Answer Note LastModified by Organizat ion Details LastModified Time Do you use any illicit or recreational drugs? Yes Information not available 07/23/2023 Do you or have you ever used any other forms of tobacco or nicotine? Yes [email or web address] Information not available 08/19/2023 What is your level of alcohol consumption? None Information not available 07/23/2023 Are you able to walk independently without assistance or assistive devices? YESWOREST Information not available 11/19/2021 Are you able to care for yourself independently? Yes Information not available 02/20/2025 Do you have difficulty dressing, bathing, grooming, or toileting? No Information not available 02/20/2025 Do you or have you ever used e-cigarettes or vape? Current user of electronic cigarettes pt. states currently using nicotine-clarisse e vape, trying to stop [email or web address] Information not available 08/19/2023 What is your exercise level? Occasional Information not available 11/19/2021 Mental Status Question Answer Note LastModified by Organization D etails LastModified Time Do you feel stressed (tense, restless, nervous, or anxious, or unable to sleep at night)? [id number] Information not available 11/19/2021 Family History Relationship Description Onset Age of this Age Resolved Age Notes LastModified by Organization Details LastModified Time Maternal Grandfather Hypertensive disorder [email or web address] Not available 2020 09:48:25 Maternal Grandfather Hypercholest erolemia [email or web address] Not available 2020 09:48:39 Maternal Grandmother Hypercholest erolemia [email or web address] Not available 2020 09:48:39 Maternal Grandmother Diabetes mellitus [email or web address] Not available 2020 09:48:55 Mother Cyst of ovary [email or web address] Not available 2024 15:27:16 Mother Uterine prolapse [email or web address] Not available 2024 15:27:16 Medical History Condition Response Other N Blood Transfusion N Dermatologic Disorders N Gestational Diabetes N Anxiety Disorder N Autoimmune disease N Arthritis N Polyps N Infertility N Acid Reflux (GERD) N Cancer N Varicosities N Stroke N Neurologic/Epilepsy N Fibromyalgia N Headaches N Kidney Disease N Heart Problems N Kidney or Bladder Problems N Eating Disorder N Art (IVF or FET) N Hepatitis/Liver Disease N No Past Medical History N Urinary Tract Infection N Asthma Y Trauma/Violence N Thrombophilias N Allergies (Food, seasonal, environmental ) Y Breast Cancer N Drug/Latex Allergies/Reactions N Lung Disease N Defects or Inherited Disease N Breast Problem N Hematologic disorders N Anesthesia Complications N History of STI N Deep Vein Thrombosis N Polycystic ovary syndrome N History of abnormal pap N Endometriosis N High Cholesterol N Thyroid Problems N GI Problems N Anemia N Psychiatric Illness N Ovarian Cancer N Diabetes N Pulmonary (TB, Asthma) N Eczema N Abuse/Domestic Violence N Depression/ depression N Heart Disease N Pre-Eclampsia N Hypertension N Osteoporosis N Gynecological History Statement/Question Response Flow Moderate Date of Last Mammogram Date of LMP 12/17/2024 N Was last menstrual period normal Y STIs/STDs N Date of control 06/01/2023 Date of Last Colonoscopy 11/23/2016 Condoms On BCP's at Conception? N HPV Vaccine Y Duration of Flow (days) 7 12 Current Control Method Are cycles usually normal Y Frequency of Cycle (Q days) 30 Sexually Active? Y Menses Monthly N Date of DEXA bone scan Age of first menstrual cycle 13 Date of Last Pap Smear 02/20/2025 Sexual Problems? N LMP Approximate 11/23/2019 N Obstetrics History GPAL:G 1 P 0 0 1 0 Type Value Spontaneous 1 Living 0 Total 1 Past Encounters Encounter ID Performer Location Encounter Start Date Encounter Closed Date Diagnosis/Indication Diagnosis SNOMED-CT Code Diagnosis ICD10 Code Diagnosis IMO Codes Diagnosis Note [id number] [facility] [address] [address] 04/05/2021 10:03:56 04/05/2021 11:15:00 Secondary dysmenorrhea [id number] N94.5 Today after much discussion we agreed on the followin. Trial of addition SLYND plus nexplanon ( 8) to help with the increased dysmenorrh ea with onset of menses that occurs q3mos. If this does not work we also discussed either replacing nexplanon earlier than placement date or counseled on Mirena IUD as well which might be an overall better option for her. 2. Pain management . We discussed trial of Celebrex (DO NOT TAKE other NSAIDS that are OTC). Can couple it with Tylenol if needed; and Tramadol 50mg PO Rx was given to use sparingly; only 1 per day the first 1-2d of her cycle if pain is very bad. She understand s this is not a routine medication that can be given in her [facility] and that other method of pain management are preferred. Understand ing voiced. 3. IUD addictions counselor. Discussed all control options that include mirena/Kyl eena/Leonardo uard IUD. I have discussed in detail all risks and benefits including risk of infection and perforatio n. She understand s she will need to contact office with next menses or may abstain, complete serum HCG day before placement, if neg can have IUD placed next day. Aware of need to verify with insurance device coverage. Literature given. All questions answered to patient satisfacti on. RTO x 2mos or sooner if issues arise. Time spent in visit is a total of 28 mins with at least 50% of visit consisting of counseling and review of plan of care. Additional precaution amber measures were taken to minimize potential exposure to the Covid-19 virus during this patient s visit, including available hand hog counter upon arrive, temperatur e check and being asked a series of screening questions. All staff wore face coverings during this encounter, as well as provided additional cleaning and sanitizing of all surfaces, including countertop s, pens, chairs, door handles, light switches, etc, prior to and following the patient s visit. [id number] Liz Dias , [facility] [address] [address] 06/18/2021 12:30:24 06/18/2021 12:50:28 Secondary dysmenorrhea [id number] N94.5 We have decided to replaced nexplanon a few months earlier than original exp date 10/05/2021 to help resolve increase in dysmenorrh ea that has started over the last few months; previously nexplanon resolved this issue entirely. Office will contact her to schedule nexplanon removal/re insertion. If do not hear from us within 1 business day please contact out office. No other questions. Total time of virtual-ZO OM visit was approx 15 mins with >50% consisting of counseling , education of patient's plan of care. Additional precaution amber measures were taken to minimize potential exposure to the Covid-19 virus during this patient s visit, including available hand hog counter upon arrive, temperatur e check and being asked a series of screening questions. All staff wore face coverings during this encounter, as well as provided additional cleaning and sanitizing of all surfaces, including countertop s, pens, chairs, door handles, light switches, etc, prior to and following the patient s visit. [id number] Liz Dias [facility] [address],[place] [address] 08/02/2021 14:27:28 08/02/2021 16:08:42 Contraception care management [id number] Z30.9 Today we agreed to leave nexplanon device in place.It does not exp until 10/09/2021 .She is interested in a study of nexplanon & it's effectiven ess x 5yrs.The study requires she leaves this device in place.We talked that I am fine leaving the device in place but since we do not have the data at this time confirming effectiven ess past 3yrs I cannot guarantee that will/will not happen.We decided to leave the device in place for now.Once she has talked to the study team more she can decide if she is going to pursue it or have nexplanon removed & trial another options of control.If she has not spoken to this study team 2wks prior to exp of this device she will contact office & make appt for possible nexplanon removal/co nsideratio n of what other BC method she would like to pursue. Time spent in visit is a total of 15 mins with at least 50% of visit consisting of counseling and review of plan of care.Addit ional precaution amber measures were taken to minimize potential exposure to the Covid-19 virus during this patient s visit, including available hand hog counter upon arrive, temperatur e check and being asked a series of screening questions. All staff wore face coverings during this encounter, as well as provided additional cleaning and sanitizing of all surfaces, including countertop s, pens, chairs, door handles, light switches, etc, prior to and following the patient s visit. [id number] Liz Dias [facility] [address],[place] [address] 12/24/2021 11:24:40 12/24/2021 12:19:49 Contraception care management [id number] Z30.9 Secondary dysmenorrhea [id number] N94.5 Discussed all control options in great detail. Pt would like to start ocp. She is aware of the risks and benefits. She does not have any medical condition that is contraindi cated with the use of estrogen containing control. Pt will start her pills on the first thursday following the start of her period. She is aware it is not effective for control the first month. She is also aware of the importance of taking at the same time every day. Encouraged use of condoms as the pill does not protect against STD's. Will return in 3 months for med check. Consent was read and signed. Pt verbalized understand ing. RTO x 3mos med checkUse secondary method of contracept ion due to medication s/OCP not effective yet for at least 4wks to prevent . Removal of subcutaneous contraceptive [id number] Z30.46 Removal site was cleansed with betadine and 3cc of lidocaine used for anesthesia . Device was removed in normal fashion without difficulty . Steri stips and pressure bandage placed. [id number] [facility] [address],[place] [address] 04/29/2022 14:29:15 04/29/2022 14:51:05 Secondary dysmenorrhea 55643463 N94.5 Patient is here today for a medicaton check of control. She voices goals of therapy have been met with use of this therapy. She denies neg side effects. She is eating, drinking, sleeping well; moods are stable & periods are well regulated. Wishes to continue this method of BC. Appropriat e to continue this medication . Time spent in visit is a total of 15 mins with at least 50% of visit consisting of counseling and review of plan of care. [id number] Liz Dias [facility] [address],[place] [address] 07/15/2022 09:56:00 07/15/2022 11:16:51 Abnormal uterine bleeding [id number] 9100 N93.9 Today warrants further evaluation with updated US for increased pain with her menses & heavier flow. She has denied updated std needed. Will f/u once results are available. Patient is to contact office or go to nearest ED/Urgent care if fever >/= 100.1, pain, excessive bleeding, unusual drainage or swelling in area of concern; or experienci ng worsening sx's or new onset of concerning sx's. Understand ing verbalized . All questions answered to patient satisfacti on. Contracept ion care management [id number] N94.5 Discussed all control options in great detail. Pt would like to start POP. She is aware of the risks and benefits. She has contraindi cations to use of OCP or other estrogen containing hormonal therapy. Pt will start her pills on the first thursday following the start of her period. She is aware it is not effective for control the first month. She is also aware of the importance of taking at the same time every day. Encouraged use of condoms as the pill does not protect against STD's. Will return in 3 months for med check. Consent was read and signed. Pt verbalized understand ing. Today we discussed changing her OCP to POP to hopefully help decrease flow which will decrease dysmenorrh ea. [id number] Liz Dias [facility] [address],[place] [address] 07/22/2022 11:24:09 07/23/2022 11:58:04 [id number] Giorgi Redding MD [facility] [address],[place] [address] 08/26/2022 12:26:11 08/26/2022 13:01:18 Abnormal uterine bleeding [id number] 9100 N93.9 [id number] Giorgi Redding MD [facility] [address],[place] [address] 07/23/2023 11:23:19 07/23/2023 12:15:44 screening [id number] Z36.87 Z3A.00 [id number] Giorgi Redding MD [facility] [address],[place] [address] 07/23/2023 11:24:02 07/23/2023 22:03:37 Threatened miscarriage [id number] O20.0 this patient is a 22-year-ol d 1 with a last menstrual period suggestive of a 7 week gestation. Ultrasound performed today. She has a empty gestationa l sac within the intrauteri ne cavity. initially was uncertain this was a nonviable . Later in the day we obtained a quantitati ve hCG that was about 30,000. this is almost certainly a nonviable . The HCG will be repeated in 2 days. I will discuss with patient at have her back to discuss treatment options. We spent over 20 minutes face-to-fa ce today. More than 50% was counseling . [id number] Giorgi Redding MD [facility] [address],[place] [address] 07/28/2023 13:26:13 07/28/2023 14:07:00 Blighted ovum [id number] O02.0 O36.8910 O02.81 Z3A.01 [id number] Giorgi Redding MD [facility] [address],[place] [address] 07/28/2023 14:11:44 07/28/2023 15:10:28 Missed miscarriage 31478004 O02.1 this patient is a 22year old female with a missed . We discussed the findings. They are conclusive . We discussed the frequency of miscarriag e. We discussed the etiology in and natural history miscarriag e. talked about her future fertility and pregnancie s. We discussed treatment options. she understand s her treatment options. She understand s there are medical and surgical treatment options. She understand s that observatio n for spontaneou s miscarriag es reasonable as well. We talked about the risk and benefits of each option. Talked about these in detail. We spent 25 minutes face-to-fa ce. Elected to use Cytotec. She is given precaution ,s discussed administra tion, return 1 week. Medication s prescribed [id number] Melissa Coyne MD [facility] [address],[place] [address] 08/12/2023 09:52:05 08/12/2023 09:53:17 [id number] Melissa Coyne MD [facility] [address],[place] [address] 08/19/2023 10:27:00 08/19/2023 15:28:30 Screening procedure [id number] Z13.9 Postoperative visit [id number] Z09 [id number] Giorgi Redding MD [facility] [address],[place] [address] 02/20/2025 15:26:55 02/20/2025 15:53:33 Uterine size for dates discrepancy [id number] O26.841 Z3A.01 [id number] Giorgi Redding MD [facility] [address],[place] [address] 02/20/2025 15:27:26 02/20/2025 17:07:58 Nausea and vomiting 15709678 R11.2 Amenorrhea 40524690 N91. 2 this patient is a 24-year-ol d female who presents for amenorrhea . She is a positive test. Ultrasound revealed a 1st trimester gestation. Patient has no complaints . We talked about early care. Talked about genetic screening. We talked about her ultrasound results. We talked about the 12 week ultrasound that has genetic screening components . She was given recommenda tions on exercise, diet, over-the-c ounter medication s. We reviewed her obstetric history. We reviewed her medical history. We reviewed her social history. She will begin routine care at her next visit. Health Concerns Section Related Observation LastModified by Organization Detai ls LastModified Time None Recorded Concern Status LastModified by Organization Details LastModified Time None Recorded Advance Directives Directive None Recorded Payers Insurance Date Sequence Insurance Name Policy Number Policy Hays Covered Member ID Hays Member ID Guarantor Name 08/17/2023 1 [employer] - DOS PRIOR TO 2021 (MEDICAID REPLACEMENT - HMO) Kari Simons [id number] Kari Simons 02/17/2025 1 [employer] - DOS ON OR AFTER 21 (MEDICAID REPLACEMENT - HMO) Kari Simons [id number] Kari Simons 02/21/2025 1 [employer] (PPO) [id number] Kari Simons [id number] Kari Simons Notes Date Note Type Note Provider Name and Address Organization Details Recorded Time 07/28/2023 text/html this patient is a 22year old female with a missed . We discussed the findings. They are conclusive. We discussed the frequency of miscarriage. We discussed the etiology in and natural history miscarriage. talked about her future fertility and pregnancies. We discussed treatment options. she understands her treatment options. She understands there are medical and surgical treatment options. She understands that observation for spontaneous miscarriages reasonable as well. We talked about the risk and benefits of each option. Talked about these in detail. We spent 25 minutes [id number]. Giorgi Redding MD [address], [place], [address], [facility] 07/28/2023 15:04:58 08/19/2023 text/html one week post op from sD and C for missed ab. Bleeding has stopped, had no cramping. emotionally doing fine, has a pretty positive outlook. wants to try again soon. Melissa Coyne MD [address], [place], [address], [facility] 08/19/2023 15:12:29 02/20/2025 text/html this patient is a 24-year-old female who presents for amenorrhea. She is a positive test. Ultrasound revealed a 1st trimester gestation. Patient has no complaints. We talked about early care. Talked about genetic screening. We talked about her ultrasound results. We talked about the 12 week ultrasound that has genetic screening components. She was given recommendations on exercise, diet, rcgx-wqo-cbzsdfp medications. We reviewed her obstetric history. We reviewed her medical history. We reviewed her social history. She will begin routine care at her next visit. Giorgi Redding MD [address], [place], [address], [place] [facility] 02/20/2025 17:00:20 OBGyn Episode Ob Episode Information Episode Created Date Number of Fetuses Patient Bloodtype Patient rh Status Prepregnancy Weight lbs Domestic Partner Domestic Partner Phone Father Name Hog Ribber Status 02/21/20 25 1 CLOSED Fetus Data First Name Last Name Admitted to NICU Weight (g) Sex Living Outcome Pediatric Complications Fetus ID Race Codes Race Delivery Type , Spontane ous [id number] Arden Calculation Initial Arden Date Initial Exam Date Initial Exam Provider Initial Ultrasound Date Last Menstrual Period Date Ultra Sound Weeks Gestation 0 Eighteen To Twenty Week Arden Update Ultra Sound Date Fundal Height At Umbil Quickening Date Ultra Sound Latest Weeks Gestation Final Arden Confirmed By Final Arden Confirmed Date Final Arden Date Ultra Sound Latest Days Gestation 0 0 Menstrual History Last Menstrual Date Menses Monthly On Bcp Conception Prior Menses Frequency Hcg Plus Date Menarche Onset Age Delivery Information Delivery Date Delivery Type Labor Anesthesia Weeks Gestation Incision Type Labor Labor Length Hrs Delivered By Post Complications Tubal Sterilization Discharge Date Comments 3 Discharge Information Feeding Method Contraceptive Method Maternal HG B and HCT Levels
--- OUTSIDE RECORDS SUMMARY | 2025-10-01 09:00 | XMS_ITS | Clinical Summary ---
Author Organization [facility] Address [address] [place] [address] Care Team Providers Care Shot Packer Name Role Phone Unavailable Primary Care Provider Unavailabl e Source Comments [facility],non-owned Affiliates and Associated Physician Practices is amultiple site organization consisting of ambulatory clinics and hospital sitesin [place], [place], [place] and [place]. This disclosure is being madepursuant to the Care Everywhere program and may not contain all information available regarding this patient. Last updated 18.[facility] Allergies Active Allergy Reactions Criticality Noted Date Comments Varicella Virus Vaccine Live Unknown 025 Medications * Be aware that medications may not be up to date on this document. Alwaysverify current medications with the patient. 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 Discharge Disposition: Home or Self Care 08/25/2025 1:34 PM CDT - 08/25/2025 11:59 PM CDT Hospital Encounter [facility] [address] [id number] Aramis Ramos DO Mead, Judith A, MD MENTALLY RETARDED TEACHER Discharge Disposition: Home or Self Care 07/25/2025 2:30 PM CDT - 07/25/2025 11:59 PM CDT Hospital En[facility] [address] [place] [id number] Kermit Choi MD Discharge Disposition: Home or Self Care 07/25/2025 Travel from Last 3 Months Social History Tobacco Use Types Packs/Day Years Used Date Smoking Tobacco: Never Assessed Estimated Date of Delivery Comme nts Yes 10/06/2025 Based on Ultraso und Sex and Gender Information Value Date Recorded Sex Assigned at Not on file Legal Sex Female 11:57 AM CDT Gender Identity Not on file Sexual Orientation Not on file Last Filed Vital Signs Vital Sign Reading Time Taken Comments Blood Pressure 104/64 05/02/2025 3:30 PM CDT Pulse 82 05/02/2025 3:30 PM CDT Temperature - - Respiratory Rate - - Oxygen Saturation - - Inhaled Oxygen Concentration - - Weight 73.5 kg (162 lb) 05/02/2025 3:30 PM CDT Height 157.5 cm (5' 2) 05/02/2025 3:30 PM CDT Body Mass Index 29.63 05/02/2025 3:30 PM CDT Plan of Treatment Health Maintenance Due Date Last Done Comments HIV SCREENING 2016 HPV VACCINE (1 - 3-dose series) 2016 MENINGOCOCCAL (Group B) VACCINE SHARED DECISION-MAKING (1 of 2 - Standard) 2017 HEPATITIS C SCREENING 10/06/2019 DTAP/TDAP/TD VACCINES (1 - Tdap) 2020 HEPATITIS B VACCINE (1 of 3 - 19+ 3-dose series) 2020 DEPRESSION SCREENING 11/23/2024 OB-ONE HOUR GLUCOSE 06/30/2025 OB-TDAP CURRENT 07/07/2025 02/22/2013 OB-RHOGAM INJECTION 07/14/2025 COVID-19 VACCINE ( - season) 2025 INFLUENZA VACCINE (#1) 2025 , 08/19/2019, 08/10/2018, Additional history exists OB-GROUP B STREP SCREEN 09/01/2025 CHLAMYDIA/GONORRHEA SCREENING 02/20/2026 02/20/2025 PAP SMEAR 02/21/2028 02/20/2025 ZOSTER VACCINE (1 of 2) 2051 HIB VACCINE Aged Out No longer eligi ble based on patient's age to complete this topic MENINGOCOCCAL GROUPS A/C/Y/W VACCINE Aged Out No longer eligible based on patient's age to complete this topic PNEUMOCOCCAL VACCINE Aged Out No long er eligible based on patient's age to complete this topic Respiratory Syncytial Virus (RSV) Vaccine Pt: or over 60 yrs (No Doses Required) Completed Procedures Procedure Name Priority Date/Time Associated Diagnosis Comments SONOGRAM - COMPLETE Routine 09/15/2025 2:18 PM CDT 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) Marijuana smoker Encounter for ultrasound to assess growth (HCC) 36 weeks gestation of (HCC) SONOGRAM - COMPLETE Routine 08/25/2025 1:51 PM CDT Family history of cleft palate with cleft lip Marijuana smoker 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 Linked Results Indication ======== Screening Follow-Up Isoimmunization, anti M to weak to titer 9/8 Family history of other condition History ====== OB History 2. Para 0 [id number] 1. miscarriage 2022. Details: D&C Lab Tests Test Date Result NIPT Low risk, Female per patient Maternal Assessment Physical Exam Height 157 cm, 5 ft 2 in. Weight 91 kg, 200 lb. Initial weight 66 kg, 145 lb. BMI 36.58 kg/m . Initial BMI 26.52 kg/m . Weight gain 25 kg, 55 lb Method ====== Transabdominal ultrasound. View: Sufficient ========= [place] . Number of fetuses: 1 Dating ====== Date Details Gest. age JUAQUIN LMP 12/17/2024 38 w + 6 d 09/23/2025 Stated JUAQUIN 37 w + 0 d 10/06/2025 Previous U/S 02/20/2025 CRL 12.6 mm 37 w + 0 d 10/06/2025 U/S 09/15/2025 based upon AC, BPD, Femur, HC 37 w + 2 d 10/04/2025 Assigned dating based on ultrasound (CRL), selected on 05/02/2025 37 w + 0 d 10/06/2025 General Evaluation Cardiac activity present. FHR 124 bpm. Presentation: cephalic Placenta: Placental site: anterior no previa Amniotic fluid: Amount of AF: normal. MVP 3.8 cm. JULIANN 10.0 cm. Q1 3.8 cm, Q2 2.1 cm, Q3 1.0 cm, Q4 3.2 cm Biometry BPD 90.6 mm 36w 5d 58% Hadlock HC 331.6 mm 37w 6d 43% Hadlock AC 339.2 mm 37w 6d 84% Hadlock Femur 72.0 mm 36w 6d 45% Hadlock Humerus 62.7 mm 36w 2d 61% Hattie HC / AC 0.98 Weight Calculation: EFW 3,218 g 68% Hadlock EFW (lb,oz) 7 lb 2 oz EFW by Hadlock ([id number]) appropriate Growth Overview Exam date GA BPD (mm) HC (mm) AC (mm) FL (mm) HL (mm) EFW (g) 05/02/2025 17w 4d 39.9 74% 145.2 49% 126.2 70% 27.7 78% 25.2 71% 232 84% 05/30/2025 21w 4d 52.3 60% 193.5 40% 172.3 63% 37.6 55% 37.3 90% 471 68% 06/28/2025 25w 5d 64 47% 235.6 23% 220.5 66% 48 47% 44.6 68% 908 61% 07/25/2025 29w 4d 76.8 76% 277.3 37% 271 87% 57.8 55% 52.3 73% 1637 79% 08/25/2025 34w 0d 88.2 88% 316 52% 322.2 96% 70.9 92% 62.1 95% 2839 93% 09/15/2025 37w 0d 90.6 58% 331.6 43% 339.2 84% 72 45% 62.7 61% 3218 68% Anatomy The following structures appear normal: Abdomen Stomach. Kidneys. Bladder. sex: female. Impression ========= Here today for interval growth ultrasounds with history of anti M antibody but antibody is too low to titers (monthly antibody analysis). Single, live, intrauterine at 37w 0d The size is appropriate for the established gestational. The amniotic fluid volume is normal. Normal appearing anterior placenta. No major malformations were seen within the limits of ultrasound. The anatomical survey has been previously completed Comment ======== The biometry showing good interval growth in the estimated weight is appropriate for the gestational age. The amniotic fluid volume is normal and there were good movements noted. There was no evidence of hydrops. ultrasound alone cannot detect all structural, genetic, or functional , placental, or maternal abnormalities Follow-up ======== To follow up as clinically warranted by the primary OB provider. However she is scheduled for induction of labor by her primary OB provider at 39 weeks. Labor and preeclampsia precautions along with kick counts. Her August titers order but order was incorrect therefore lap detected not obtain sample for August will recommend repeating titers prior to her induction of labor at 39 weeks. Thank you for allowing us to partake in your patient's care. Coding ====== Diagnoses O36.1930: Maternal care for other isoimmunization Z84.89: Family history of other specified conditions Z36.2: Encounter for other screening follow-up Procedures 00439: US Preg [facility] Anatomical Region Laterality Modality Other 09/15/2025 2:18 PM CDT us Liset Nair MD [facility] ORDERABLES Edited Resu lt - Final from Last 3 Months Insurance [facility]
[2025-10-01 09:01] VITALS: BMI 37.9
--- NOTE | 2025-10-01 09:02 | LDADM ---
This patient, Kari Simons, was admitted to Labor/Delivery/Recovery 106 on 10/01/25 at 03:31. Plans for ruling out labor Patient/family oriented to hospital policies and general routines including ID bracelet, bed and alarms, visiting hours, pain management, procedures, bathroom and other care routines, personal items, smoking policy, room service/diet and guest tray routines, infant security routines, and visiting hours. Patient/Family are encouraged to report perceived risks to care and to ask questions if they do not understand what they are told or what they should do. See OBIX for further documentation.
--- NOTE | 2025-10-04 06:28 | PM.OBTRLD ---
OB - Triage/Final Diagnosis Visit Information Reason for evaluation: threatened labor Comments/Additional reasons for admission: I have assessed the risk for this patient, Kari Chavarria, and determined that she would benefit from observation care.
== END 2025-10-01 09:21 | disposition home or self-care (01) ==
PROVIDERS: Admitting Provider Obstetrics & Gynecology; Visit Provider Obstetrics & Gynecology
DX: O47.1 False labor at or after 37 completed weeks of gestation (principal); Z3A.39 39 weeks gestation of pregnancy
CPT/HCPCS: G0378; G0379

== ENCOUNTER 2025-10-02 15:48 | Inpatient (IN) | payer OTHER, SELFPAY ==
[2025-10-02] VITALS (142 sets, daily range): BP systolic 82–151; BP diastolic 45–140; PULSE 83–193; TEMP 36.2–36.9; O2SAT 97–100; BMI 37.0
--- OUTSIDE RECORDS SUMMARY | 2025-10-02 15:58 | XMS_ITS | Patient Health Record ---
Author Organization [facility] Address [address] [place] [address] Care Team Providers Care Operations Clerk Name Role Phone Rachelle Nuñez Primary Care Provider [phone] Allergies Allergen (clinical drug ingredient) Drug/Non Drug [...] Status Risk Notes Problem Generalized anxiety disorder (77892966) Generalized anxiety disorder (F41.1) 04/29/20 21 Active confirmed FIDEL-7 18 Problem Bipolar 1 disorder (821315728) Bipolar 1 disorder (F31.9) 12/09/19 23 Active confirmed PREVIOUS DIAGNOSIS and initial MDQ 8/13 AND PHQ-9 17. Recent reported angelo episode lasting 3-4 weeks Problem Vitamin D deficiency (74460752) Vitamin D deficiency (E55.9) Active confirmed Problem Bipolar affective disorder, currently depressed, moderate (774134510) Bipolar disorder with moderate depression (F31.32) 04/29/20 21 Active confirmed PREVIOUS DIAGNOSIS and initial MDQ 8/13 AND PHQ-9 17 Plan Of Treatment No Information Insurance Providers Payer Name Payer Address Payer Phone Subscriber Number Group Number Insured Name Patient Relationship to Insured Coverage Start Date Coverage End Date [facility] Att Claims Department [address] [place] [address] [phone] [id number] Kari Simons Self - patient is the insured 1 [employer] [facility] Claims Department [address] [place] [address] [phone] [id number] Kari Simons Self - patient is the insured 1 Medical (General) History Medical History History ICD Code anxiety bipolar depression exczema Surgical History Surgery Date(Month/Year) colonoscopy 2019 Hospitalization History Reason Date(Month/Year)
--- OUTSIDE RECORDS SUMMARY | 2025-10-02 15:58 | XMS_ITS ---
Author Organization [facility] Source Produ ction (ClinicalSummary Clone) Address Unknown Care Team Providers Care Lab Assistant Name Role Phone Unavailable Primary Care Physician Unavailab le Results * [UNITY] CARRIER SCREEN Performed by: [employer] Component Value Range Date Fraction 3.2% 05/06/2025 04 :08 am [facility] Cystic Fibrosis NIPT result LOW RISK < 1 in 5000 05/06/2025 04:08 am [facility] Sickle Cell Disease/Beta-Thalassemia/Hemo globinopathies carrier screen NEGATIVE 05/06/2025 04:08 am [facility] Alpha-Thalassemia carrier screen NEGATIVE 05/06/2025 04:08 am [facility] Cystic Fibrosis carrier screen POSITIVE [id number] ([id number]) 05/06/2025 04:08 am [facility] Spinal Muscular Atrophy carrier screen NEGATIVE 2 SMN1 copies, SNP not present 05/06/2025 04:08 am [facility] For detailed report, see PDF See PDF 05/06/2025 04:08 am [facility] 05/06/2025 04:0 8 am [facility] Social History Observation Value Start Date End Date
--- OUTSIDE RECORDS SUMMARY | 2025-10-02 15:58 | XMS_ITS | Clinical Summary ---
Author Organization [facility] Address [address] [place] [address] Care Team Providers Care Tempering Machine Operator Name Role Phone Unavailable Primary Care Provider Unavailabl e Source Comments [facility],non-owned Affiliates and Associated Physician Practices is amultiple site organization consisting of ambulatory clinics and hospital sitesin [place], [place], [place] and [place]. This disclosure is being madepursuant to the Care Everywhere program and may not contain all information available regarding this patient. Last updated 18.[facility] [employer] Allergies Active Allergy Reactions Criticality Noted Date [...] Active vitamin D, ergocalciferol, (Drisdol) 1.25 MG (86244 UT) capsule Take 1 (one) capsule by mouth every 7 days (once a week) Active Encounters Date Type Department Care Team Description 09/15/2025 2:13 PM CDT - 09/15/2025 11:59 PM CDT Hospital Encounter [facility] [address] [place] [address] [phone] Aramis Ramos DO INVENTORY CONTROL SUPERVISOR Discharge Disposition: Home or Self Care 08/25/2025 1:34 PM CDT - 08/25/2025 11:59 PM CDT Hospital Encounter [facility] [address] [phone] Aramis Ramos DO Mead, Judith A, MD INVENTORY CONTROL SUPERVISOR Discharge Disposition: Home or Self Care 07/25/2025 2:30 PM CDT - 07/25/2025 11:59 PM CDT Hospital Encounter [facility] [address] [place] [phone] Kermit Choi MD Discharge Disposition: Home or [...] History ====== OB History 2. Para 0 [id number] 1. miscarriage 2022. Details: D&C Lab Tests [...] 7 lb 2 oz EFW by Hadlock ([id number]) appropriate Growth Overview Exam date [place] BPD [...] Z36.2: Encounter for other screening follow-up Procedures 81578: US Preg Uterus Follow Up [facility] PACS Anatomical Region Laterality Modality Other 09/15/2025 2:18 PM CDT us Liset Nair MD [facility] ORDERABLES Edited Resu lt - Final from Last 3 Months Insurance [facility]
--- OUTSIDE RECORDS SUMMARY | 2025-10-02 15:58 | XMS_ITS ---
Author Organization [facility] Source Produ ction (ClinicalSummary Clone) Address Unknown Care Team Providers Care Health Technician Name Role Phone Unavailable Primary Care Physician Unavailab le Results * [UNITY] ANEUPLOIDY NIPT Performed by: [employer] Value Range Date Fraction 3.9% 04/26/2025 04 :15 am UTC Sex Chromosome Aneuploidy NOT DETECTED 04:15 am UTC Monosomy X LOW RISK <1 in 10,000 2024 04:15 am UTC Trisomy 13 LOW RISK <1 in 10,000 2024 04:15 am UTC Trisomy 18 LOW RISK <1 in 10,000 2024 04:15 am UTC Trisomy 21 LOW RISK <1 in 10,000 2024 04:15 am UTC Sex FEMALE 04/26/2025 04:1 5 am UTC Gestation DOBSON 04/26/20 04:15 am UT For detailed report, see PDF See PDF 04/26/2025 04:15 am UTC 04/26/2025 04:1 5 am [facility] Social History Observation Value Start Date End Date
--- OUTSIDE RECORDS SUMMARY | 2025-10-02 15:58 | XMS_ITS | Clinical Summary ---
Author Organization [facility] Address [address] [place] [address] Care Team Providers Care Instrument Engineer Name Role Phone Huong Bynum MD Primary [...] on file Legal Sex Female 4:15 PM TEMPORARY OFFICE ASSISTANT Gender Identity Not on file Sexual Orientation Not on file Last Filed Vital Signs Vital Sign Reading Time Taken Comments Blood Pressure 113/65 10/16/2022 4:24 PM TEMPORARY OFFICE ASSISTANT Pulse 108 10/16/2022 4:24 PM TEMPORARY OFFICE ASSISTANT Temperature 36.7 C (98 F) 10/16/2022 4:24 PM TEMPORARY OFFICE ASSISTANT Respiratory Rate 22 10/16/2022 4:24 PM TEMPORARY OFFICE ASSISTANT Oxygen Saturation 100% 10/16/2022 4:24 PM TEMPORARY OFFICE ASSISTANT Inhaled Oxygen Concentration - - Weight 74.8 kg (165 lb) 10/16/2022 4:24 PM TEMPORARY OFFICE ASSISTANT Height - - Body Mass Index - [...] to complete this topic Insurance Care Teams Instrument Engineer Relationship Specialty Start Date End Date Huong Bynum MD [address] [place] [address] [id number] PCP - General Family Medicine 10/16/22
--- NOTE | 2025-10-02 16:10 | LDADM ---
This patient, Kari Chavarria, was admitted to Labor/Delivery/Recovery 105 on 10/02/25 at 15:48. Plans for labor, pain management and were discussed with patient. Patient/family oriented to hospital policies and general routines including ID bracelet, bed and alarms, visiting hours, pain management, procedures, bathroom and other care routines, personal items, smoking policy, room service/diet and guest tray routines, security routines, and visiting hours. Patient/Family are encouraged to report perceived risks to care and to ask questions if they do not understand what they are told or what they should do. See OBIX for further documentation.
[2025-10-02 16:27] LABS: OBXCEM ROM Plus Negative (Negative)
[2025-10-02] MEDS: LACTATED RINGERS 1,000 ML 125 ML IV CONT ×2 (16:31→18:51)
[2025-10-02 16:43] LABS: Hematocrit 36.6 % (37.0-47.0); Hemoglobin 11.9 g/dL (12.0-15.0); Immature Granulocyte Percent A 1.6 % (0-0.5); Lymphocytes Absolute Auto 2.39 K/mm3 (0.9-3.2); Mean Corpuscular HGB Conc 32.5 g/dl (32-36); Mean Corpuscular Hemoglobin 27.3 pg (26-34); Mean Corpuscular Volume 83.9 fl (80-100); Nucleated Red Blood Cells Absolute Auto 0.000 K/mm3 (0.0-0.012); Nucleated Red Blood Cells Perc 0.0 % (0.0-0.2); Platelet Count Result 367 k/mm3 (150-375); Red Blood Count 4.36 M/mm3 (4.2-5.4); White Blood Count 15.4 K/mm3 (4.5-10.0)
--- NOTE | 2025-10-02 16:52 | P.PNAN_ITS ---
Anes - Eval Pre Procedure Procedure: labor pain management Date/Time: 10/02/25 16:52 Surgeon: Korey Preop Diagnosis: pain during labor Pre Op Diagnosis: contractions Patient Data Age: 24 Gender: F Height: 1.57 m Weight: 92 kg Last Vital Signs O2 Del Method Room Air 10/02/25 16:09 Allergies Allergy/AdvReac Type Severity Reaction Status Date / Time raspberry Allergy Unknown Hives / Verified 10/02/25 16:24 Red Face chicken pox vaccine Allergy Unknown Unknown Uncoded 08/11/23 12:26 Home Medications ?Medication ?Instructions ?Recorded ?Confirmed ?Type No Home Medications 08/10/23 10/02/25 H istory Laboratory Tests 10/02/25 10/02/25 16:26 16:28 WBC 15.4 H K/mm3 (4.5-10.0) RBC 4.36 M/mm3 (4.2-5.4) Hgb 11.9 L g/dL (12.0-15.0) Hct 36.6 L % (37.0-47.0) MCV 83.9 fl (80-100) MCH 27.3 pg (26-34) MCHC 32.5 g/dl (32-36) RDW 14.5 % (11.5-14.5) Plt Count 367 k/mm3 (150-375) MPV 11.0 H fl (7.4-10.4) Immature Gran % (Auto) 1.6 H % (0-0.5) Neut % (Auto) 75.6 H % (45.5-73.1) Lymph % (Auto) 15.5 L % (18.3-44.2) Carbon % (Auto) 6.4 % (2.6-8.5) Eos % (Auto) 0.5 % (0-4.4) Baso % (Auto) 0.4 % (0.2-1.2) Lymph # (Auto) 2.39 K/mm3 (0.9-3.2) Carbon # (Auto) 1.0 H K/mm3 (0.1-0.6) Eos # (Auto) 0.1 K/mm3 (0-0.3) Baso # (Auto) 0.1 K/mm3 (0.0-0.1) Abs Immat Gran (auto) 0.25 H K/mm3 (0.00-0.031) Absolute Neuts (auto) 11.6 H K/mm3 (1.3-6.7) Absolute Nucleated RBC 0.000 K/mm3 (0.0-0.012) Nucleated RBC % 0.0 % (0.0-0.2) Membranes Rupture Rom plus negative (Negative) Blood Type Pending Antibody Screen Pending Patient hx anesthesia problems: none Family hx anesthesia problems: none Results Review: All pre-operative results and documents have been reviewed as part of the pre- operative evaluation. [facility] Past Medical History Medical History IBS (irritable bowel syndrome) Exercise-induced asthma COVID-19 08/2021 Anxiety Bipolar disorder Surgical History Surgical History H/O colonoscopy Family History Family History Grandparent Diabetes mellitus Multiple myeloma Grandparent Hypertension Social History Social History Smoking status: Current every day smoker Tobacco type: e-cigarettes/vaping Smokeless tobacco user: other Second hand tobacco smoke exposure: Yes (uses vape) Alcohol intake: former Alcohol use details: VERY RARE WHEN NOT Substance use: never Substance use type: marijuana Lack of Transportation: No Lack of Food: Never True Current Housing: I Have Housing Concerned About Future Housing: No Difficulty Paying Gas/Electric Bills: No Difficulty Paying for Meds: No Currently Unemployed: No Education: High School Diploma/GED Difficulty w/ Childcare or Family Care: No Living arrangements: with family Additional living arrangements comments: [facility] Gender identity (if verbalized by the patient): Female Spiritual care concerns: No Exam Day of Procedure 10/02/25 16:52
[2025-10-02 17:29] LABS: Syphilis IgG/IgM Antibody Non-Reactive (Nonreactive)
[2025-10-02] MEDS: FAMOTIDINE 20 MG/2 ML VIAL IV PUSH (18:01)
[2025-10-02] MEDS: OXYTOCIN 30 UNITS/NS 500 ML 30 UNITS/500 ML BAG IV CONT (18:02)
--- NOTE | 2025-10-02 22:52 | S_PTH ---
PATIENT: Kari Chavarria LOC: [facility] U#:[id number] AGE/SX: 24/F ROOM: 282 RE10/02/[address]: Liset Nair MD : 2000 BED: 00 DIS: 10/04/2025 SPEC #: [id number] RECD: 10/03/25 11:42 STATUS: REGULO REDomitila #: [id number] SHEYLA: 10/02/25 22:[address]: Liset Nair DEPT: [facility] Surgical RECD BY: Richard Krishnamurthy ENTERED: 10/03/25 11:42 SP TYPE: Surgical OTHR DR: SALES AGENT PEST CONTROL SERVICE PHYSICIAN Tissues: A - Placenta Procedures: Hematoxylin and Eosin Stain Gross and Microscopic Level 5
--- NOTE | 2025-10-02 22:58 | WPDOBADMIT ---
Obstetrics - Admit Note Admission Note: record reviewed. No pertinent additions to the history and/or any subsequent changes in the physical findings that are not consistent with the expected course of the were found. Additions to the history and/or subsequent changes in the physical findings follow. None.
--- NOTE | 2025-10-02 22:58 | PM.OBPRVD ---
OB - Vaginal Delivery Note Procedure Delivery date: 10/02/25 Induction method: None Delivery augmentation: Pitocin Delivery monitor: External FHT and External Uterine Route of delivery: Episiotomy description: None Laceration Description: Periurethral and Perineal - 2nd Degree Delivery repair: vicryl (3-0) Specimen: Yes Quantitative Blood Loss (ml): 100 Anesthesia type: Epidural Disposition: Floor Complications: No immediate complications Baby Date of : 10/02/25 Gestational Age by Date: 39 gender: Female presentation: vertex position: Left Occiput Anterior Placenta delivery description: Spontaneous Cord Vessel Description: 3 Vessels, Delayed Cord Clamping and Other (short cord) score one minute: 8 score five minutes: 9
--- NOTE | 2025-10-02 23:03 | PM.OBDSVD ---
DS: Admitting Diagnosis Discharge Date 10/04/25 Admitting Diagnosis IUP 39 wks in labor DS: Discharge Diagnosis Discharge Diagnosis (1) (normal spontaneous vaginal delivery): Code(s): O80 - Encounter for full-term uncomplicated delivery Status: Acute OB - DS: Summary OB Procedures : Ultrasound OB Procedures Intrapartum: Spontaneous Vag Delivery OB Procedures: : None Peripartum Data Infant Delivery Method: Natural Vaginal Laceration Description: Periurethral and Perineal - 2nd Degree Episiotomy description: None complications: none Status at Discharge Functional status at discharge: independent ambulation Overall status at discharge: patient is progressing back to baseline Time Spent with Patient Time attestation: Total time spent providing and/or coordinating discharge services: DS: Data Data Completed and Pending Labs on day of discharge: Labs from last 24 hours 10/02/25 10/02/25 16:28 16:26 WBC 15.4 H RBC 4.36 Hgb 11.9 L Hct 36.6 L MCV 83.9 MCH 27.3 MCHC 32.5 RDW 14.5 Plt Count 367 MPV 11.0 H Immature Gran % (Auto) 1.6 H Neut % (Auto) 75.6 H Lymph % (Auto) 15.5 L [place] % (Auto) 6.4 Eos % (Auto) 0.5 Baso % (Auto) 0.4 Lymph # (Auto) 2.39 [place] # (Auto) 1.0 H Eos # (Auto) 0.1 Baso # (Auto) 0.1 Abs Immat Gran (auto) 0.25 H Absolute Neuts (auto) 11.6 H Absolute Nucleated RBC 0.000 Nucleated RBC % 0.0 Membranes Rupture Rom plus negative Syphilis IgG/IgM Ab Non-reactive Blood Type O Positive Antibody Screen Positive Antibody Identification Pending Antigen Identification Pending ALLIE, IgG Interpret TNP ALLIE, Poly Interpret Negative ALLIE, Complement Interp TNP Discharge Plan Discharge Attending physician on discharge: Liset Nair Discharging Clinician: Liset Nair Anticipated Discharge Date/Time: 10/04/25 11:03 Patient Disposition: Home Activity: may shower and pelvic rest Diet: regular Patient Instructions: Antibiotic Form Patient Language: Salvadorean Stand Alone Forms: General Discharge Information Follow-up/Referrals: Liset Nair MD [Physician, CONING MACHINE OPERATOR] - 6 Weeks Discharge Medications: Continued No Home Medications Date of admission: 10/02/25 15:48 Primary Care Provider: PHYSICIAN,LEATHER NOVELTY PARTS CUTTER Admitting Provider: Liset Nair Attending physician on admission: Liset Nair Condition: Stable
[2025-10-02] MEDS: OXYTOCIN 30 UNITS/NS 500 ML 30 UNITS/500 ML BAG 125 UNITS IV CONT (23:17)
[2025-10-03] VITALS (11 sets, daily range): BP systolic 99–130; BP diastolic 50–87; PULSE 86–113; RESP 16–18; TEMP 36.2–37.1; O2SAT 98–99
[2025-10-03] MEDS: ACETAMINOPHEN 325 MG TABLET 650 MG PO ×4 (02:15→23:08)
[2025-10-03] MEDS: IBUPROFEN 600 MG TABLET PO ×4 (02:15→23:08)
[2025-10-03] MEDS: WITCH HAZEL 40 PADS 1 PAD TOPICAL (03:30)
[2025-10-03] MEDS: BENZOCAINE 20% AER SPR (*SP) 56 GM CAN 1 SPRAY TOPICAL (03:30)
[2025-10-03 05:28] LABS: Hematocrit 34.7 % (37.0-47.0); Hemoglobin 11.2 g/dL (12.0-15.0)
--- NOTE | 2025-10-03 07:48 | WPDANLDPN2 ---
Anes-Prog Note L&D Date/Time: 10/03/25 07:48 Comfortable throughout: labor and delivery Neuraxial method: epidural Epidural/Spinal procedure site: clean & non-tender Neuro status: Neuro function grossly intact. Cardiovascular status: normal Respiratory status: normal Airway patency: baseline Mental status: baseline Post-Op hydration status: normal Vital Signs: Last Vital Signs Temp 37.0 C 10/03/25 04:45 Pulse 112 H 10/03/25 04:45 Resp 18 10/03/25 04:45 BP 111/65 10/03/25 04:45 Pulse Ox 99 10/03/25 04:45 O2 Del Method Room Air 10/02/25 16:09 Pain score (VAS): 1 I/O: Intake & Output 10/02/25 10/02/25 10/03/25 15:59 23:59 07:59 Intake Total 1000 Output Total 550 100 Balance 450 -100 Post-procedural complaints: none Patient feedback: Patient satisfied with anesthetic care.
[2025-10-03] MEDS: MULTIVIT/MIN/PREN/FOL AC/IRON TABLET 1 TAB PO (07:58)
--- NOTE | 2025-10-03 09:15 | PC.NURSE ---
Patient requests feeding assistance. Baby has been sleepy this morning and only fed for 5 minutes at 0600. Baby is alert with stimulation but does not root or gape. We started in a cradle position and tried for about 10 minutes. We switched to football position hoping to wake baby more. We tried for another 5 minutes and baby was still very sleepy with minimal effort to open her mouth or latch. Discussed pumping and bottle feeding with mom and she is educated on expected milk production in the immediate period. We were unable to get baby to latch appropriately. Mom is encouraged to let baby rest for another half hour before trying to feed again. Patient will watch for early feeding cues and call out sooner if baby is ready. Primary RN updated.
--- NOTE | 2025-10-03 10:00 | PC.NURSE ---
Met with patient regarding feeding. Baby has not woken to eat and the parents just changed a poopy diaper. Baby had her eyes open but was not showing any feeding cues. We undressed her and placed her at the left breast in a cradle hold. Baby made a few attempts to latch. At each latch attempt that baby made, she pushed the nipple out of her mouth and was unable to create a seal on the breast. Mom states that baby often holds the nipple in her mouth but does not suck. Baby was switched to football hold but no longer gave feeding cues or gaped. I tried to have baby suck on a gloved finger, but she had a sensitive gag reflex and did not create a seal around the finger and she did not suck. She burped and spit up some foamy mucous. Reviewed with mom that infants often swallow amniotic fluid at delivery. After attempting for a total of 15 minutes, mom is offered the option to wait and try again at 1100 or initiate pumping now. She would like to wait and try again and if baby does not latch and feed at that time, she would like to pump and give anything she gets with a syringe rather than a bottle. Primary RN updated.
--- NOTE | 2025-10-03 11:35 | PC.NURSE ---
Breast pump provided due to [ineffective feeding for >5 hours]. Mom attempted independently to latch baby but was unable and chooses to start pumping now. A hospital pump was provided for her. Instructions given on cleaning, care, usage, that there should be no pain, pumping schedule for milk production, collection, and storage of human milk. Patient was assessed for correct placement, and flange size (24mm). 1.5mls of colostrum were syringe fed to by RN. Mother educated on safe syringe feeding.?Mother voiced understanding of the education shared along with mom/baby guide for additional resource information. Reported to the Primary RN.
--- NOTE | 2025-10-03 13:35 | P.PNOB_ITS ---
OB - PN: Subj Subjective Date/time seen: 10/03/25 13:35 Patient comments: no complaints and pain well controlled baby status: doing well OB - PN: Obj Data Labs 10/03/25 04:49 Labs: Laboratory Results - last 24 hr 10/02/25 10/02/25 10/03/25 16:26 16:28 04:49 WBC 15.4 H RBC 4.36 Hgb 11.9 L 11.2 L Hct 36.6 L 34.7 L MCV 83.9 MCH 27.3 MCHC 32.5 RDW 14.5 Plt Count 367 MPV 11.0 H Immature Gran % (Auto) 1.6 H Neut % (Auto) 75.6 H Lymph % (Auto) 15.5 L [place] % (Auto) 6.4 Eos % (Auto) 0.5 Baso % (Auto) 0.4 Lymph # (Auto) 2.39 [place] # (Auto) 1.0 H Eos # (Auto) 0.1 Baso # (Auto) 0.1 Abs Immat Gran (auto) 0.25 H Absolute Neuts (auto) 11.6 H Absolute Nucleated RBC 0.000 Nucleated RBC % 0.0 Membranes Rupture Rom plus negative Syphilis IgG/IgM Ab Non-reactive Blood Type O Positive Antibody Screen Positive ALLIE, IgG Interpret TNP ALLIE, Poly Interpret Negative ALLIE, Complement Interp TNP OB - PN A/P Plan day: 1 Plan: routine care Time Spent With Patient Time: Total time spent is greater than 50% in coordination of care (as documented) at patient's floor/unit and/or counseling patient: Exam 2 : Bimanual exam- vagina & uterus: other (Uterus firm, nt @U)
--- NOTE | 2025-10-03 15:20 | PC.NURSE ---
Patient had questions regarding pumping. She attempted to feed baby independently without success. She states that baby was too sleepy. She chooses to pump at this time and provide any expressed breast milk to baby with the syringe. Patient was instructed on using clean pump parts and drying pieces with a clean paper towel if needed. She is advised not to dry parts with a towel at home to prevent cross contamination. Patient is encouraged to call out for assistance with syringe feeding or pumping if needed. Primary RN updated.
--- NOTE | 2025-10-03 15:45 | PC.NURSE ---
Patient pumped 2.5mls and syringe fed it to baby independently. Primary RN aware.
[2025-10-03] MEDS: DOCUSATE SODIUM 100 MG CAPSULE PO (23:08)
[2025-10-04 07:25] VITALS: BP 91/59; PULSE 90; RESP 16; TEMP 36.5; O2SAT 99
--- NOTE | 2025-10-04 07:57 | P.PNOB_ITS ---
OB - PN: Subj Subjective Date/time seen: 10/04/25 07:57 Patient comments: no complaints and pain well controlled baby status: doing well and other (needs to go under bili lights) OB - PN: Obj Data Labs 10/03/25 04:49 Labs: Laboratory Results - last 24 hr 10/02/25 16:28 Antibody Identification Anti-M Antigen Identification M Antigen - NEGATIVE OB - PN A/P Plan day: 2 Plan: routine care, discharge home, follow up 6 weeks and other (unsure bc) Time Spent With Patient Time: Total time spent is greater than 50% in coordination of care (as documented) at patient's floor/unit and/or counseling patient: Exam 2 : Bimanual exam- vagina & uterus: other (Uterus firm, nt @U)
[2025-10-04] MEDS: IBUPROFEN 600 MG TABLET PO ×2 (08:01→17:08)
[2025-10-04] MEDS: MULTIVIT/MIN/PREN/FOL AC/IRON TABLET 1 TAB PO (08:01)
[2025-10-04] MEDS: ACETAMINOPHEN 325 MG TABLET 650 MG PO ×2 (08:03→17:08)
--- NOTE | 2025-10-04 09:13 | PC.NURSE ---
0840: Introductions were made, communication board updated. MD has ordered [id number] feeding plan. Discussed with parents their intent to feed infant with this current feeding. Mother states that she has pumped breast milk that she would like to give along with the 15ml of Enfamil formula. Mother denies wanting to put infant to the breast at this time and states I want to stick to pumping and feeding for now until the jaundice levels are under control. Educated parents on feeding infant by syringe and bottle. Parents understanding instructions provided and will call for assistance, if needed. Primary RN updated.
--- NOTE | 2025-10-04 16:53 | PC.NURSE ---
Called to patient bedside to answer patient questions. Patient had questions regarding pumping and feeding along with supplementing . Questions answered regarding how much should be taking and if could take more than minimum requirement, yazidism bottles brought from home and appropriate nipple sizing for the bottles and how long it should take to feed.
[2025-10-04] MEDS: WITCH HAZEL 40 PADS 1 PAD TOPICAL (17:09)
[2025-10-04] MEDS: BENZOCAINE 20% AER SPR (*SP) 56 GM CAN 1 SPRAY TOPICAL (17:09)
[2025-10-06 09:40] VITALS: BP 109/71; PULSE 93; RESP 18; TEMP 36.9; O2SAT 97
== END 2025-10-04 17:15 | disposition home or self-care (01) | DRG 807 ==
LOC: ANHLDR 23:04 → ANHOB2 10-03 01:40
PROVIDERS: Admitting Provider Obstetrics & Gynecology Gynecology; Visit Provider Obstetrics & Gynecology Gynecology
DX: O77.0 Labor and delivery complicated by meconium in amniotic fluid (principal); Z37.0 Single live birth; Z3A.39 39 weeks gestation of pregnancy; O70.1 Second degree perineal laceration during delivery; O71.82 Other specified trauma to perineum and vulva
CPT/HCPCS: 36415; 84112; 85014; 85018; 85025; 86593; 86850; 86870; 86880; 86900; 86901; 86902; 86971; 88307; A9270; J2590; J2795; J7120